=== PATIENT | male | born 1935 | race Hispanic/Latino ===

== ENCOUNTER 2020-09-20 09:16 | Inpatient (IN) | payer OTHER, MEDICAID ==
[~2020-09-20] VITALS: Ht 152.4 cm; Wt 57.2 kg
--- NOTE | 2020-09-20 10:29 | REP ---
INDICATION: AMS. COMPARISON: None. TECHNIQUE: SINGLE PORTABLE AP VIEW OF THE CHEST WAS PERFORMED. FINDINGS: THERE IS NO ACUTE INFILTRATE OR PULMONARY EDEMA. LUNGS ARE CLEAR. HEART IS NOT SIGNIFICANTLY ENLARGED. MEDIASTINAL SILHOUETTE IS UNREMARKABLE. THE VISUALIZED OSSEOUS STRUCTURES ARE INTACT. IMPRESSION: NO ACUTE PULMONARY DISEASE. <Electronically signed by Alexandr Willson > 09/20/20 1022
[2020-09-20 10:47] LABS: BASO % 0.5 % (0.0-1.0); EOS % 0.7 % (0.0-3.0); HEMATOCRIT 34.6 % (42.0-52.0); HEMOGLOBIN 11.1 g/dl (13.5-17.5); LYMPH # 1.2 10^3/uL (1.5-5.0); LYMPH % 22.2 % (24.0-44.0); MEAN CORPUSCULAR HEMOGLOBIN 31.2 pg (27.0-33.0); MEAN CORPUSCULAR HGB CONC 32.1 g/dl (32.0-36.5); MEAN CORPUSCULAR VOLUME 97.2 fl (80.0-96.0); MONO # 0.6 10^3/uL (0.0-0.8); MONO % 10.6 % (0.0-5.0); NEUTROPHILS # 3.7 10^3/uL (1.5-8.5); NEUTROPHILS % 65.6 % (36.0-66.0); PLATELET COUNT, AUTOMATED 189 10^3/uL (150-450); RED BLOOD COUNT 3.56 10^6/uL (4.30-6.10); WHITE BLOOD COUNT 5.6 10^3/uL (4.0-10.0)
[2020-09-20 11:24] LABS: ALBUMIN 3.7 GM/DL (3.2-5.2); ALT/SGPT 40 U/L (12-78); BILIRUBIN,TOTAL 0.3 MG/DL (0.2-1.0); BLOOD UREA NITROGEN 41 MG/DL (7-18); CALCIUM LEVEL 9.2 MG/DL (8.8-10.2); CARBON DIOXIDE LEVEL 26 MEQ/L (21-32); CHLORIDE LEVEL 108 MEQ/L (98-107); CREATININE FOR GFR 1.62 MG/DL (0.70-1.30); ETHYL ALCOHOL (ETHANOL) < 0.003 % (0.000-0.010); GLOMERULAR FILTRATION RATE 43.5 (>35); GLUCOSE, FASTING 101 MG/DL (70-100); POTASSIUM SERUM 5.2 MEQ/L (3.5-5.1); SODIUM LEVEL 139 MEQ/L (136-145); TOTAL PROTEIN 7.1 GM/DL (6.4-8.2)
[2020-09-20] MEDS ORDERED: LEVO125T41 PO (12:04)
[2020-09-20] MEDS ORDERED: NS 1,000 ML IV SCH (12:15)
--- OUTSIDE RECORDS SUMMARY | 2020-09-20 12:22 | CCD ---
Author Author [facility] Organization [facility] Address Unknown Phone Unavailable Support Name Relationship Address Phone RE Next Of Kin Unknown Unavailable VIDALESJUD Next Of Kin [address] [id number] Re-disclosure Warning The records that you are about to access may contain information from federally-assisted alcohol or drug abuse programs. If such information is present, then the following federally mandated warning applies: This information has been disclosed to you from records protected by federal confidentiality rules (42 CFR part 2). The federal rules prohibit you from making any further disclosure of this information unless further disclosure is expressly permitted by the written consent of the person to whom it pertains or as otherwise permitted by 42 CFR part 2. A general authorization for the release of medical or other information is NOT sufficient for this purpose. The Federal rules restrict any use of the information to criminally investigate or prosecute any alcohol or drug abuse patient.The records that you are about to access may contain highly sensitive health information, the redisclosure of which is protected by Article 27-F of the [facility] Public Health law. If you continue you may have access to information: Regarding HIV / AIDS; Provided by facilities licensed or operated by the [facility] Office of Mental Health; or Provided by the [facility] Office for People With Developmental Disabilities. If such information is present, then the following [facility] mandated warning applies: This information has been disclosed to you from confidential records which are protected by state law. State law prohibits you from making any further disclosure of this information without the specific written consent of the person to whom it pertains, or as otherwise permitted by law. Any unauthorized further disclosure in violation of state law may result in a fine or halfway sentence or both. A general authorization for the release of medical or other information is NOT sufficient authorization for further disc losure. Insurance Providers Payer name Policy type / Coverage type Policy ID Covered libertarian ID Covered libertarian's relationship to mann Policy Mann Plan Information [facility] [id number]
[2020-09-20 13:14] LABS: FREE T4 1.37 NG/DL (0.76-1.46)
[2020-09-20 13:22] LABS: TOTAL T3 82.9 NG/DL (60.0-181.0)
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
[2020-09-20 15:15] VITALS: BP 165/74
[2020-09-20 15:34] LABS: CALCIUM LEVEL 9.4 MG/DL (8.8-10.2); CREATININE FOR GFR 1.42 MG/DL (0.70-1.30); GLOMERULAR FILTRATION RATE 50.7 (>35); POTASSIUM SERUM 4.8 MEQ/L (3.5-5.1)
[2020-09-20 15:36] LABS: CHOLESTEROL RISK RATIO 3.125 (<5)
[2020-09-20 15:42] LABS: HEMOGLOBIN A1c 5.7 %
--- NOTE | 2020-09-20 16:29 | ECGEPIP ---
[facility] - ED Test Date: 2020-09-20 Pat Name: BRISA VIDALES Department: Room: - Gender: Male Surgical Tech: KIARA : [id number] Requested By: Sejal Gordon Order Number: [id number] Reading MD: Fred Hernández Measurements Intervals [place] Rate: 60 P: 49 NH: 157 QRS: 1 QRSD: 90 T: 10 QT: 412 QTc: 413 Interpretive Statements SINUS RHYTHM POOR R WAVE PROGRESSION NONSPECIFIC T WAVE ABNORMALITY(S) BASELINE ARTIFACT AFFECTS INTERPRETATION NO PRIORS FOR COMPARISON Electronically Signed on 09-20-2020 16:29:07 EST by Fred Hernández
[2020-09-20 16:36] LABS: HIV 1&2 SCREEN CENTAUR NEGATIVE (NEGATIVE); VITAMIN B12 LEVEL 603 PG/ML (247-911)
[2020-09-20] MEDS: QUEtiapine FUMARATE 25 MG TAB PO SCH (20:31)
[2020-09-20] MEDS: HEPARIN SOD (PORCINE) 5000UNITS/ML 1ML VIAL/SYRINGE SQ SCH (20:31)
[2020-09-20] MEDS ORDERED: traZODone 50 MG TAB PO SCH (21:00)
[2020-09-21] MEDS: LEVOTHYROXINE 100MCG TABLET (0.1MG) PO SCH (05:13)
[2020-09-21 06:00] VITALS: BP 156/77
[2020-09-21 06:25] LABS: HEMATOCRIT 35.7 % (42.0-52.0); HEMOGLOBIN 11.7 g/dl (13.5-17.5); MEAN CORPUSCULAR HEMOGLOBIN 32.2 pg (27.0-33.0); MEAN CORPUSCULAR HGB CONC 32.8 g/dl (32.0-36.5); MEAN CORPUSCULAR VOLUME 98.3 fl (80.0-96.0); PLATELET COUNT, AUTOMATED 189 10^3/uL (150-450); RED BLOOD COUNT 3.63 10^6/uL (4.30-6.10); WHITE BLOOD COUNT 5.3 10^3/uL (4.0-10.0)
[2020-09-21 06:53] LABS: ALBUMIN 3.4 GM/DL (3.2-5.2); BILIRUBIN,TOTAL 0.4 MG/DL (0.2-1.0); CALCIUM LEVEL 9.6 MG/DL (8.8-10.2); CREATININE FOR GFR 1.34 MG/DL (0.70-1.30); GLOMERULAR FILTRATION RATE 54.2 (>35); POTASSIUM SERUM 4.4 MEQ/L (3.5-5.1); TOTAL PROTEIN 7.1 GM/DL (6.4-8.2)
[2020-09-21] MEDS: QUEtiapine FUMARATE 25 MG TAB PO SCH ×2 (08:51→21:39)
[2020-09-21] MEDS: HEPARIN SOD (PORCINE) 5000UNITS/ML 1ML VIAL/SYRINGE SQ SCH ×2 (08:54→21:39)
[2020-09-21 14:00] VITALS: BP 123/66
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
[2020-09-21 21:10] VITALS: BP 140/84
[2020-09-21] MEDS: haloperidoL 1 MG TAB PO SCH (21:39)
[2020-09-22] MEDS: QUEtiapine FUMARATE 25 MG TAB PO SCH ×3 (01:22→22:10)
[2020-09-22] MEDS: haloperidoL 1 MG TAB PO SCH ×2 (01:22→22:10)
[2020-09-22 05:34] VITALS: BP 148/52
[2020-09-22 06:51] LABS: HEMATOCRIT 34.5 % (42.0-52.0); HEMOGLOBIN 11.3 g/dl (13.5-17.5); MEAN CORPUSCULAR HEMOGLOBIN 31.2 pg (27.0-33.0); MEAN CORPUSCULAR HGB CONC 32.8 g/dl (32.0-36.5); MEAN CORPUSCULAR VOLUME 95.3 fl (80.0-96.0); PLATELET COUNT, AUTOMATED 195 10^3/uL (150-450); RED BLOOD COUNT 3.62 10^6/uL (4.30-6.10); WHITE BLOOD COUNT 4.6 10^3/uL (4.0-10.0)
[2020-09-22 07:19] LABS: ALBUMIN 3.3 GM/DL (3.2-5.2); BILIRUBIN,TOTAL 0.4 MG/DL (0.2-1.0); CALCIUM LEVEL 9.1 MG/DL (8.8-10.2); CREATININE FOR GFR 1.48 MG/DL (0.70-1.30); GLOMERULAR FILTRATION RATE 48.3 (>35); POTASSIUM SERUM 5.4 MEQ/L (3.5-5.1); TOTAL PROTEIN 7.2 GM/DL (6.4-8.2)
[2020-09-22] MEDS: LEVOTHYROXINE 100MCG TABLET (0.1MG) PO SCH (09:10)
[2020-09-22] MEDS: HEPARIN SOD (PORCINE) 5000UNITS/ML 1ML VIAL/SYRINGE SQ SCH ×2 (09:10→22:11)
--- NOTE | 2020-09-22 12:06 | REPVR ---
PROCEDURE INFORMATION: Exam: MR Head Without Contrast Exam date and time: 09/22/2020 6:00 AM Age: 85 years old Clinical indication: Altered mental status/memory loss; Age related cognitive decline; Additional info: Confusion, worsening TECHNIQUE: Imaging protocol: MR of the head without contrast. COMPARISON: No relevant prior studies available. FINDINGS: Brain: Moderate generalized cerebral volume loss. There are extensive scattered and confluent areas of white matter T2 hyperintensity, nonspecific but commonly secondary to chronic small vessel ischemic change. No acute ischemic infarction. No acute intracranial hemorrhage. Cerebral ventricles: No ventriculomegaly. Bones/joints: Unremarkable. Paranasal sinuses: Normal as visualized. Mastoid air cells: No mastoid effusion. Orbital cavity: Bilateral lens replacements. Soft tissues: Unremarkable. IMPRESSION: No acute intracranial abnormality. Electronically signed by: Lambert Simms On 09/22/2020 12:06:19 PM
[2020-09-22] MEDS: NS 1,000 ML IV SCH ×2 (13:07→22:58)
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
[2020-09-22 22:00] VITALS: BP 138/78
[2020-09-23 06:55] LABS: HEMATOCRIT 33.3 % (42.0-52.0); HEMOGLOBIN 10.8 g/dl (13.5-17.5); MEAN CORPUSCULAR HEMOGLOBIN 31.3 pg (27.0-33.0); MEAN CORPUSCULAR HGB CONC 32.4 g/dl (32.0-36.5); MEAN CORPUSCULAR VOLUME 96.5 fl (80.0-96.0); PLATELET COUNT, AUTOMATED 189 10^3/uL (150-450); RED BLOOD COUNT 3.45 10^6/uL (4.30-6.10); WHITE BLOOD COUNT 4.8 10^3/uL (4.0-10.0)
[2020-09-23] MEDS: LEVOTHYROXINE 100MCG TABLET (0.1MG) PO SCH (06:55)
[2020-09-23 07:01] VITALS: BP 133/81
[2020-09-23 07:12] LABS: ALBUMIN 3.1 GM/DL (3.2-5.2); BILIRUBIN,TOTAL 0.3 MG/DL (0.2-1.0); CREATININE FOR GFR 1.4 MG/DL (0.70-1.30); GLOMERULAR FILTRATION RATE 51.5 (>35); POTASSIUM SERUM 4.4 MEQ/L (3.5-5.1); TOTAL PROTEIN 6.9 GM/DL (6.4-8.2)
[2020-09-23] MEDS: QUEtiapine FUMARATE 25 MG TAB PO SCH ×3 (10:01→20:56)
[2020-09-23] MEDS: HEPARIN SOD (PORCINE) 5000UNITS/ML 1ML VIAL/SYRINGE SQ SCH ×2 (10:02→20:57)
[2020-09-23] MEDS: NS 1,000 ML IV SCH ×2 (10:03→20:57)
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
[2020-09-23] MEDS: haloperidoL 1 MG TAB PO SCH (20:56)
[2020-09-24 06:10] VITALS: BP 160/66
[2020-09-24] MEDS: LEVOTHYROXINE 100MCG TABLET (0.1MG) PO SCH (06:10)
[2020-09-24 06:37] LABS: HEMATOCRIT 33.2 % (42.0-52.0); HEMOGLOBIN 10.7 g/dl (13.5-17.5); MEAN CORPUSCULAR HEMOGLOBIN 31.9 pg (27.0-33.0); MEAN CORPUSCULAR HGB CONC 32.2 g/dl (32.0-36.5); MEAN CORPUSCULAR VOLUME 99.1 fl (80.0-96.0); PLATELET COUNT, AUTOMATED 177 10^3/uL (150-450); RED BLOOD COUNT 3.35 10^6/uL (4.30-6.10); WHITE BLOOD COUNT 4.5 10^3/uL (4.0-10.0)
[2020-09-24] MEDS: NS 1,000 ML IV SCH (06:43)
[2020-09-24 07:17] LABS: ALBUMIN 3.1 GM/DL (3.2-5.2); ALT/SGPT 31 U/L (12-78); BILIRUBIN,TOTAL 0.4 MG/DL (0.2-1.0); BLOOD UREA NITROGEN 25 MG/DL (7-18); CALCIUM LEVEL 8.8 MG/DL (8.8-10.2); CARBON DIOXIDE LEVEL 26 MEQ/L (21-32); CHLORIDE LEVEL 112 MEQ/L (98-107); CREATININE FOR GFR 1.19 MG/DL (0.70-1.30); GLOMERULAR FILTRATION RATE > 60.0 (>35); GLUCOSE, FASTING 82 MG/DL (70-100); POTASSIUM SERUM 4.7 MEQ/L (3.5-5.1); SODIUM LEVEL 143 MEQ/L (136-145); TOTAL PROTEIN 6.2 GM/DL (6.4-8.2)
[2020-09-24] MEDS: QUEtiapine FUMARATE 25 MG TAB PO SCH ×2 (08:49→22:00)
[2020-09-24] MEDS: HEPARIN SOD (PORCINE) 5000UNITS/ML 1ML VIAL/SYRINGE SQ SCH ×2 (08:49→22:00)
--- NOTE | 2020-09-24 11:00 | WAPSY-INT ---
[facility] PSYCH INITIAL ASSESSMENT DATE OF ADMISSION: 09/20/2020 ADDENDUM: Patient indicated that he had the virus. I am not sure how accurate that is, but that needs to be noted. The clinicians will need to explore that, possibly via the patient's daughter.
[2020-09-24] MEDS: haloperidoL 0.5 MG TAB PO PRN ×2 (16:37→23:10)
[2020-09-24] MEDS: haloperidoL 1 MG TAB PO SCH (22:00)
[2020-09-25] MEDS: LEVOTHYROXINE 100MCG TABLET (0.1MG) PO SCH (06:35)
[2020-09-25] MEDS: HEPARIN SOD (PORCINE) 5000UNITS/ML 1ML VIAL/SYRINGE SQ SCH ×3 (09:00→21:00)
[2020-09-25] MEDS: QUEtiapine FUMARATE 25 MG TAB PO SCH ×2 (11:46→20:44)
[2020-09-25] MEDS: haloperidoL 1 MG TAB PO SCH (20:44)
[2020-09-25] MEDS ORDERED: OLANZapine INTRAMUSCULAR 10MG VIAL IM ONE ×2 (23:15→23:45)
--- NOTE | 2020-09-25 23:47 | IPNPDOC ---
Text Note Date of Service The patient was seen on 09/25/20. NOTE TIME OF SERVICE 1115PM Code 25 was called bc was agitated and trying to leave his room. At the time of my assessment with the assistance of a wall cleaner the topic of his conversation was not congruent with the questions I was asking him. He was not able to name the building that we were in or the season.Per chart review he had received haloperidol and quetiapine a few hours ago; he has not recently had leukocytosis and his most recent vitals were wnl.. RN Tire Retreader Elizabeth Blevins called his grand-daughter to see if she could come and help keep the patient oriented but she was unable to do so. #Delirium vs Plan: olanzapine 5mg IM x asked his RN to check his serum glucose and vitals once he perales calmed down / will also order a CBC, CMP and UA VS,Fishbone, I+O VS, Fishbone, I+O Vital Signs Date Time Temp Pulse Resp B/P (MAP) Pulse Ox O2 Delivery O2 Flow Rate FiO2 09/24/20 06:10 97.4 72 18 160/66 (97) 99 Room Air I&O- Last 24 Hours up to 6 AM 09/25/20 06:00 Intake Total 2910 ml Output Total 600 ml Balance 2310 ml DANNIE RAY MD Sep 25, 2020 23:47
[2020-09-25 23:50] VITALS: BP 118/69
[2020-09-26 01:07] LABS: BASO % 0.6 % (0.0-1.0); EOS # 0.1 10^3/uL (0.0-0.5); EOS % 1.5 % (0.0-3.0); HEMATOCRIT 36.1 % (42.0-52.0); HEMOGLOBIN 11.9 g/dl (13.5-17.5); LYMPH # 1.1 10^3/uL (1.5-5.0); LYMPH % 30.5 % (24.0-44.0); MONO # 0.5 10^3/uL (0.0-0.8); MONO % 14.2 % (0.0-5.0); NEUTROPHILS # 1.8 10^3/uL (1.5-8.5); NEUTROPHILS % 52.9 % (36.0-66.0); PLATELET COUNT, AUTOMATED 187 10^3/uL (150-450); RED BLOOD COUNT 3.72 10^6/uL (4.30-6.10); WHITE BLOOD COUNT 3.4 10^3/uL (4.0-10.0)
[2020-09-26 01:13] LABS: ALBUMIN 3.4 GM/DL (3.2-5.2); BILIRUBIN,TOTAL 0.3 MG/DL (0.2-1.0); CALCIUM LEVEL 9.5 MG/DL (8.8-10.2); CREATININE FOR GFR 1.41 MG/DL (0.70-1.30); GLOMERULAR FILTRATION RATE 51.1 (>35); POTASSIUM SERUM 4.7 MEQ/L (3.5-5.1); TOTAL PROTEIN 7.5 GM/DL (6.4-8.2)
[2020-09-26 02:04] LABS: C REACTIVE PROTEIN QUANTITATIV 0.33 MG/DL (0.00-0.30)
[2020-09-26 06:00] VITALS: BP 172/91
[2020-09-26] MEDS: LEVOTHYROXINE 100MCG TABLET (0.1MG) PO SCH (06:16)
[2020-09-26] MEDS: QUEtiapine FUMARATE 25 MG TAB PO SCH ×2 (07:24→20:27)
[2020-09-26] MEDS: HEPARIN SOD (PORCINE) 5000UNITS/ML 1ML VIAL/SYRINGE SQ SCH ×2 (07:25→20:27)
[2020-09-26 07:29] LABS: RSV AMPLIFICATION NEGATIVE (NEGATIVE)
[2020-09-26] MEDS: haloperidoL 0.5 MG TAB PO PRN (12:49)
[2020-09-26] MEDS: haloperidoL 1 MG TAB PO SCH (20:27)
[2020-09-27 04:00] VITALS: BP 153/74
[2020-09-27] MEDS: LEVOTHYROXINE 100MCG TABLET (0.1MG) PO SCH (05:06)
[2020-09-27] MEDS: HEPARIN SOD (PORCINE) 5000UNITS/ML 1ML VIAL/SYRINGE SQ SCH ×2 (09:00→21:15)
[2020-09-27] MEDS: QUEtiapine FUMARATE 25 MG TAB PO SCH ×2 (09:20→21:12)
--- NOTE | 2020-09-27 09:38 | IPNPDOC ---
Text Note Date of Service The patient was seen on 09/27/20. NOTE SUBJECTIVE: Patient seen at bedside. Chart reviewed. Discussed with psychiatry. OBJECTIVE: General: NAD Patient not co-operative for remainder of exam. A/P: 85-year-old male with PMHx of hypothyroidism, hypertension, questionable dementia admitted for altered mental status likely 2/2 to dementia (Lewey body versus Parkinson's?) with behaviors. #Dementia (Lewy Body dementia/Parkinson's dementia?) likely with behaviors (aggression/violence) -Also per psych, likely neurocognitive disorder, likely due to ischemia -MRI - no acute pathology -Syphilis: nonreactive -HIV: neg -TSH low but T3 and T4 normal -UA: neg -case discussed previously with Dr. Denson, neurology -Pysch assess, see their note in chart. -discussed again today with psych - increased qhs dosing of haldol, continue PRN dosing, continue seroquel #Acute kidney injury - resolved -grossly at baseline - avoid nephrotoxic medications #Anemia, macrocytic -Vit B12, folate wnl -No s/s of bleeding #Hypothyroidism -TSH low, T3 and T4 wnl - previously home synthroid decreased by 25 mcg -C/w levothyroxine 100 mcg PO daily for now. #HTN. -Stable -not on home meds #DVT px -Heparin sc Resolved issues: Hyperkalemia likely 2/2 to acute kidney injury DISPOSITION: Pending placement VS,Fishbone, I+O VS, Fishbone, I+O Vital Signs Date Time Temp Pulse Resp B/P (MAP) Pulse Ox O2 Delivery O2 Flow Rate FiO2 09/27/20 04:00 96.8 77 18 153/74 (100) 97 Room Air I&O- Last 24 Hours up to 6 AM 09/27/20 06:00 Intake Total 590 ml Output Total 0 ml Balance 590 ml PROSPER RHODES MD Sep 27, 2020 09:38
[2020-09-27] MEDS: haloperidoL 1 MG TAB PO SCH (21:12)
[2020-09-28] MEDS: LEVOTHYROXINE 100MCG TABLET (0.1MG) PO SCH (05:00)
[2020-09-28 05:02] VITALS: BP 150/71
[2020-09-28] MEDS: HEPARIN SOD (PORCINE) 5000UNITS/ML 1ML VIAL/SYRINGE SQ SCH ×2 (10:06→20:33)
[2020-09-28] MEDS: QUEtiapine FUMARATE 25 MG TAB PO SCH ×2 (10:06→20:33)
[2020-09-28] MEDS: haloperidoL 1 MG TAB PO SCH (20:33)
[2020-09-28] MEDS: haloperidoL 0.5 MG TAB PO PRN (23:41)
[2020-09-29] MEDS: LEVOTHYROXINE 100MCG TABLET (0.1MG) PO SCH (06:00)
[2020-09-29] MEDS: HEPARIN SOD (PORCINE) 5000UNITS/ML 1ML VIAL/SYRINGE SQ SCH ×2 (09:00→21:36)
[2020-09-29] MEDS: QUEtiapine FUMARATE 25 MG TAB PO SCH ×2 (14:16→21:36)
[2020-09-29] MEDS: haloperidoL 1 MG TAB PO SCH (21:36)
[2020-09-30 06:00] VITALS: BP 151/70
[2020-09-30] MEDS: LEVOTHYROXINE 100MCG TABLET (0.1MG) PO SCH (06:07)
[2020-09-30] MEDS: HEPARIN SOD (PORCINE) 5000UNITS/ML 1ML VIAL/SYRINGE SQ SCH ×2 (08:42→21:36)
[2020-09-30] MEDS: QUEtiapine FUMARATE 25 MG TAB PO SCH ×2 (08:42→21:35)
[2020-09-30] MEDS: haloperidoL 1 MG TAB PO SCH (21:34)
[2020-10-01 06:00] VITALS: BP 144/72
[2020-10-01] MEDS: LEVOTHYROXINE 100MCG TABLET (0.1MG) PO SCH (06:00)
[2020-10-01] MEDS: HEPARIN SOD (PORCINE) 5000UNITS/ML 1ML VIAL/SYRINGE SQ SCH ×2 (09:12→21:00)
[2020-10-01] MEDS: QUEtiapine FUMARATE 25 MG TAB PO SCH ×2 (09:12→21:22)
[2020-10-01] MEDS: haloperidoL 1 MG TAB PO SCH (21:22)
[2020-10-02 06:00] VITALS: BP 152/71
[2020-10-02] MEDS: LEVOTHYROXINE 100MCG TABLET (0.1MG) PO SCH (08:01)
[2020-10-02] MEDS: QUEtiapine FUMARATE 25 MG TAB PO SCH ×2 (08:01→21:10)
[2020-10-02] MEDS: HEPARIN SOD (PORCINE) 5000UNITS/ML 1ML VIAL/SYRINGE SQ SCH ×2 (08:02→21:10)
[2020-10-02 09:26] LABS: HEMATOCRIT 37.6 % (42.0-52.0); HEMOGLOBIN 12.1 g/dl (13.5-17.5); MEAN CORPUSCULAR HGB CONC 32.2 g/dl (32.0-36.5); MEAN CORPUSCULAR VOLUME 96.4 fl (80.0-96.0); PLATELET COUNT, AUTOMATED 227 10^3/uL (150-450); WHITE BLOOD COUNT 3.5 10^3/uL (4.0-10.0)
[2020-10-02 10:01] LABS: ALBUMIN 3.5 GM/DL (3.2-5.2); BILIRUBIN,TOTAL 0.2 MG/DL (0.2-1.0); CALCIUM LEVEL 9.6 MG/DL (8.8-10.2); CREATININE FOR GFR 1.38 MG/DL (0.70-1.30); GLOMERULAR FILTRATION RATE 52.4 (>35); POTASSIUM SERUM 4.9 MEQ/L (3.5-5.1)
--- NOTE | 2020-10-02 13:23 | IPNPDOC ---
Date Seen The patient was seen on 10/02/20. Progress Note SUBJECTIVE: Structural Engineering Drafting Officer service used for evaluation. No acute events overnight. Denies chest pain, n/v/d. OBJECTIVE: PHYSICAL EXAMINATION: VS: Please see below CONSTITUTIONAL: No acute distress, resting comfortably, Awake and alert oriented to self, place but not time EYES: PERRLA, EOM intact HENT, MOUTH: Normocephalic, atraumatic, moist mucous membranes NECK: SUPPLE, no JVD, no lymphadenopathy, no carotid bruit CV: Regular rate and rhythm, S1S2 normal, no murmurs/rubs/gallops RESPIRATORY: Clear to auscultation bilaterally, no rales/rhonchi/wheezes GI: BS positive in 4 quadrants, soft, nontender, nondistended, no rebound or guarding, no organomegaly : Deferred MUSCULOSKELETAL: Normal ROM. No cyanosis, clubbing, swelling, joint deformity, extremity edema INTEGUMENTARY: Intact, no rashes, no lesions, no erythema NEUROLOGIC: Cranial Nerves II-XII are intact, no focal deficits PSYCHIATRIC: cooperative, mood and affect appropriate . LABORATORY: Please see below A/P: 85-year-old male with PMHx of hypothyroidism, hypertension, questionable dementia admitted for altered mental status likely 2/2 to dementia (Lewey body versus Parkinson's?) with behaviors. #Dementia (Lewy Body dementia/Parkinson's dementia?) likely with behaviors (aggression/violence) -Also per psych, likely neurocognitive disorder, likely due to ischemia -MRI - no acute pathology -Syphilis: nonreactive -HIV: neg -TSH low but T3 and T4 normal -UA: neg -case discussed previously with Dr. Denson, neurology -[facility] assess, see their note in chart. -C/w qhs dosing of haldol, haldol PRN dosing, seroquel BID -Requiring placement, PFS/SW working on this #CKD Stage 2-3? -Unknown baseline but now believed patient likely has had increased Cr for some time -Cr 1.38 -Follow BMP regularly - avoid nephrotoxic medications #Anemia, macrocytic -Vit B12, folate wnl -No s/s of bleeding #Hypothyroidism -TSH low, T3 and T4 wnl - previously home synthroid decreased by 25 mcg -C/w levothyroxine 100 mcg PO daily for now. #HTN. -Stable -not on home meds #DVT px -Heparin sc DISPOSITION: Pending placement. PFS/SW working on avenues necessary to proceed forward. VS, I&O, 24H, Fishbone Vital Signs/I&O Vital Signs Date Time Temp Pulse Resp B/P (MAP) Pulse Ox O2 Delivery O2 Flow Rate FiO2 10/02/20 06:00 97.1 69 16 152/71 (98) 98 Room Air I&O- Last 24 Hours up to 6 AM 10/02/20 06:00 Intake Total 1320 ml Balance 1320 ml Laboratory Data 24H LABS Laboratory Tests 2 10/02/20 09:17: Nucleated Red Blood Cells % (auto) 0.0, Anion Gap 6L, Glomerular Filtration Rate 52.4, Calcium Level 9.6, Total Bilirubin 0.2, Aspartate Amino Transf (AST/SGOT) 29, Alanine Aminotransferase (ALT/SGPT) 56, Alkaline Phosphatase 73, Total Protein 7.0, Albumin 3.5, Albumin/Globulin Ratio 1.0 CBC/BMP Laboratory Tests 10/02/20 09:17 Current Medications Current Medications Medications (Trade) Dose Ordered Sig/Cleopatra Route PRN Reason Start Time Stop Time Status Last Admin Dose Admin Haloperidol (Haldol) 0.5 mg TIDP PRN PO ANXIETY/AGITATION 09/21/20 19:30 09/28/20 23:41 Haloperidol (Haldol) 1 mg QHS PO 09/21/20 21:00 09/27/20 09:32 DC 09/26/20 20:27 Haloperidol (Haldol) 1.5 mg QHS PO 09/27/20 21:00 10/01/20 21:22 Heparin Sodium (Porcine) (Heparin) 5,000 units Q12H SQ 09/20/20 21:00 10/02/20 08:02 Home Med (Med Rec Complete!) ASDIRECTED XX 09/20/20 12:15 09/20/20 12:07 DC Levothyroxine Sodium (Synthroid) 100 mcg DAILY@06 PO 09/21/20 06:00 10/02/20 08:01 Quetiapine Fumarate (SEROquel) 25 mg BID PO 09/20/20 21:00 10/02/20 08:01 Sodium Chloride 1,000 ml @ 100 mls/hr Q10H IV 09/20/20 12:15 09/20/20 20:53 DC 09/20/20 14:47 Sodium Chloride 1,000 ml @ 100 mls/hr Q10H IV 09/22/20 12:15 09/24/20 07:45 DC 09/24/20 06:43 Trazodone HCl (Desyrel) 50 mg QHS PO 09/20/20 21:00 09/20/20 14:33 DC Allergies Coded Allergies: No Known Drug Allergies (Verified Allergy, Unknown, 09/20/20) Beatriz Segura MD Oct 02, 2020 13:23
[2020-10-02] MEDS: haloperidoL 1 MG TAB PO SCH (21:10)
[2020-10-03 05:49] VITALS: BP 167/75
[2020-10-03] MEDS: LEVOTHYROXINE 100MCG TABLET (0.1MG) PO SCH (06:47)
[2020-10-03] MEDS: HEPARIN SOD (PORCINE) 5000UNITS/ML 1ML VIAL/SYRINGE SQ SCH ×2 (09:19→19:46)
[2020-10-03] MEDS: QUEtiapine FUMARATE 25 MG TAB PO SCH ×2 (09:19→19:45)
[2020-10-03] MEDS: haloperidoL 1 MG TAB PO SCH (19:45)
[2020-10-04] MEDS: LEVOTHYROXINE 100MCG TABLET (0.1MG) PO SCH (06:00)
[2020-10-04] MEDS: QUEtiapine FUMARATE 25 MG TAB PO SCH ×2 (08:14→19:32)
[2020-10-04] MEDS: HEPARIN SOD (PORCINE) 5000UNITS/ML 1ML VIAL/SYRINGE SQ SCH ×2 (08:14→19:32)
[2020-10-04] MEDS: haloperidoL 1 MG TAB PO SCH (19:33)
[2020-10-05 05:53] VITALS: BP 165/90
[2020-10-05] MEDS: LEVOTHYROXINE 100MCG TABLET (0.1MG) PO SCH (05:56)
[2020-10-05] MEDS: HEPARIN SOD (PORCINE) 5000UNITS/ML 1ML VIAL/SYRINGE SQ SCH ×2 (08:32→19:29)
[2020-10-05] MEDS: QUEtiapine FUMARATE 25 MG TAB PO SCH ×2 (08:32→19:29)
[2020-10-05] MEDS: haloperidoL 1 MG TAB PO SCH (19:29)
[2020-10-06] MEDS: LEVOTHYROXINE 100MCG TABLET (0.1MG) PO SCH (05:18)
[2020-10-06 06:02] VITALS: BP 140/65
[2020-10-06] MEDS: QUEtiapine FUMARATE 25 MG TAB PO SCH ×2 (09:05→19:28)
[2020-10-06] MEDS: HEPARIN SOD (PORCINE) 5000UNITS/ML 1ML VIAL/SYRINGE SQ SCH ×2 (09:05→19:28)
[2020-10-06] MEDS: haloperidoL 1 MG TAB PO SCH (19:28)
[2020-10-07 06:00] VITALS: BP 141/69
[2020-10-07] MEDS: LEVOTHYROXINE 100MCG TABLET (0.1MG) PO SCH (06:15)
[2020-10-07] MEDS: HEPARIN SOD (PORCINE) 5000UNITS/ML 1ML VIAL/SYRINGE SQ SCH ×2 (08:44→19:45)
[2020-10-07] MEDS: QUEtiapine FUMARATE 25 MG TAB PO SCH ×2 (08:44→19:44)
[2020-10-07] MEDS: DOCUSATE SODIUM 100MG CAPSULE PO SCH ×2 (09:00→19:44)
[2020-10-07] MEDS: haloperidoL 1 MG TAB PO SCH (19:44)
[2020-10-08] MEDS: LEVOTHYROXINE 100MCG TABLET (0.1MG) PO SCH (06:27)
[2020-10-08] MEDS: HEPARIN SOD (PORCINE) 5000UNITS/ML 1ML VIAL/SYRINGE SQ SCH ×2 (09:47→20:01)
[2020-10-08] MEDS: DOCUSATE SODIUM 100MG CAPSULE PO SCH ×2 (09:47→20:01)
[2020-10-08] MEDS: QUEtiapine FUMARATE 25 MG TAB PO SCH ×2 (09:47→20:02)
[2020-10-08] MEDS: haloperidoL 1 MG TAB PO SCH (20:01)
[2020-10-09 06:00] VITALS: BP 148/71
[2020-10-09] MEDS: LEVOTHYROXINE 100MCG TABLET (0.1MG) PO SCH (06:04)
[2020-10-09] MEDS: QUEtiapine FUMARATE 25 MG TAB PO SCH ×2 (09:35→20:46)
[2020-10-09] MEDS: HEPARIN SOD (PORCINE) 5000UNITS/ML 1ML VIAL/SYRINGE SQ SCH ×2 (09:35→20:47)
[2020-10-09] MEDS: DOCUSATE SODIUM 100MG CAPSULE PO SCH ×2 (09:35→20:47)
[2020-10-09] MEDS: haloperidoL 1 MG TAB PO SCH (20:47)
[2020-10-10 06:00] VITALS: BP 145/69
[2020-10-10] MEDS: LEVOTHYROXINE 100MCG TABLET (0.1MG) PO SCH (06:06)
[2020-10-10] MEDS: DOCUSATE SODIUM 100MG CAPSULE PO SCH ×2 (08:34→20:33)
[2020-10-10] MEDS: QUEtiapine FUMARATE 25 MG TAB PO SCH ×2 (08:34→20:33)
[2020-10-10] MEDS: HEPARIN SOD (PORCINE) 5000UNITS/ML 1ML VIAL/SYRINGE SQ SCH ×2 (08:34→20:33)
[2020-10-10] MEDS: haloperidoL 1 MG TAB PO SCH (20:33)
[2020-10-11 06:00] VITALS: BP 113/60
[2020-10-11] MEDS: LEVOTHYROXINE 100MCG TABLET (0.1MG) PO SCH (06:08)
[2020-10-11] MEDS: HEPARIN SOD (PORCINE) 5000UNITS/ML 1ML VIAL/SYRINGE SQ SCH ×2 (08:24→21:04)
[2020-10-11] MEDS: QUEtiapine FUMARATE 25 MG TAB PO SCH ×2 (08:24→21:03)
[2020-10-11] MEDS: DOCUSATE SODIUM 100MG CAPSULE PO SCH ×2 (08:24→21:03)
[2020-10-11] MEDS: haloperidoL 1 MG TAB PO SCH (21:03)
[2020-10-12 06:00] VITALS: BP 128/74
[2020-10-12] MEDS: LEVOTHYROXINE 100MCG TABLET (0.1MG) PO SCH (06:09)
[2020-10-12] MEDS: HEPARIN SOD (PORCINE) 5000UNITS/ML 1ML VIAL/SYRINGE SQ SCH ×2 (09:06→20:11)
[2020-10-12] MEDS: DOCUSATE SODIUM 100MG CAPSULE PO SCH ×2 (09:06→20:11)
[2020-10-12] MEDS: QUEtiapine FUMARATE 25 MG TAB PO SCH ×2 (09:06→20:11)
[2020-10-12] MEDS: haloperidoL 1 MG TAB PO SCH (20:11)
[2020-10-13] MEDS: LEVOTHYROXINE 100MCG TABLET (0.1MG) PO SCH (06:14)
[2020-10-13 06:15] VITALS: BP 129/74
[2020-10-13] MEDS: DOCUSATE SODIUM 100MG CAPSULE PO SCH ×2 (09:35→21:27)
[2020-10-13] MEDS: HEPARIN SOD (PORCINE) 5000UNITS/ML 1ML VIAL/SYRINGE SQ SCH ×2 (09:35→21:28)
[2020-10-13] MEDS: QUEtiapine FUMARATE 25 MG TAB PO SCH ×2 (09:35→21:27)
[2020-10-13] MEDS: haloperidoL 1 MG TAB PO SCH (21:28)
[2020-10-14] MEDS: LEVOTHYROXINE 100MCG TABLET (0.1MG) PO SCH (05:17)
[2020-10-14 05:52] VITALS: BP 130/73
[2020-10-14] MEDS: DOCUSATE SODIUM 100MG CAPSULE PO SCH ×2 (09:19→21:08)
[2020-10-14] MEDS: QUEtiapine FUMARATE 25 MG TAB PO SCH ×2 (09:19→21:08)
[2020-10-14] MEDS: HEPARIN SOD (PORCINE) 5000UNITS/ML 1ML VIAL/SYRINGE SQ SCH ×2 (09:19→21:08)
--- NOTE | 2020-10-14 12:11 | IPNPDOC ---
Text Note Date of Service The patient was seen on 10/14/20. NOTE SUBJECTIVE: No acute events overnight. Denies any medical complaints. OBJECTIVE: VS: Please see below CONSTITUTIONAL: No acute distress, resting comfortably, Awake and alert oriented to self, place but not time EYES: PERRLA, EOM intact HENT, MOUTH: Normocephalic, atraumatic, moist mucous membranes NECK: SUPPLE, no JVD, no lymphadenopathy, no carotid bruit CV: Regular rate and rhythm, S1S2 normal, no murmurs/rubs/gallops RESPIRATORY: Clear to auscultation bilaterally, no rales/rhonchi/wheezes GI: BS positive in 4 quadrants, soft, nontender, nondistended, no rebound or guarding, no organomegaly : Deferred MUSCULOSKELETAL: Normal ROM. No cyanosis, clubbing, swelling, joint deformity, extremity edema INTEGUMENTARY: Intact, no rashes, no lesions, no erythema NEUROLOGIC: Cranial Nerves II-XII are intact, no focal deficits PSYCHIATRIC: cooperative, mood and affect appropriate . LABORATORY: Please see below A/P: 85-year-old male with PMHx of hypothyroidism, hypertension, questionable dementia admitted for altered mental status likely 2/2 to dementia (Lewey body versus Parkinson's?) with behaviors. #Dementia (Lewy Body dementia/Parkinson's dementia?) likely with behaviors (aggression/violence) -Also per psych, likely neurocognitive disorder, likely due to ischemia -MRI - no acute pathology -Syphilis: nonreactive -HIV: neg -TSH low but T3 and T4 normal -UA: neg -case discussed previously with Dr. Denson, neurology -Pysch assess, see their note in chart. -C/w qhs dosing of haldol, haldol PRN dosing, seroquel BID -Requiring placement, PFS/SW working on this #CKD Stage 2-3? -Unknown baseline but now believed patient likely has had increased Cr for some time -Cr 1.38 -Follow BMP regularly - avoid nephrotoxic medications #Anemia, macrocytic -Vit B12, folate wnl -No s/s of bleeding #Hypothyroidism -TSH low, T3 and T4 wnl - previously home synthroid decreased by 25 mcg -C/w levothyroxine 100 mcg PO daily for now. #HTN. -Stable -not on home meds #DVT px -Heparin sc DISPOSITION: Pending placement. PFS/SW working on avenues necessary to proceed forward. Discontinued PRN Haldol. Routine labs pending. VS,Fishbone, I+O VS, Fishbone, I+O Vital Signs Date Time Temp Pulse Resp B/P (MAP) Pulse Ox O2 Delivery O2 Flow Rate FiO2 10/14/20 05:52 96.0 68 20 130/73 (92) 98 Room Air I&O- Last 24 Hours up to 6 AM 10/14/20 06:00 Intake Total 1920 ml Output Total 0 ml Balance 1920 ml PROSPER RHDOES MD Oct 14, 2020 12:11
[2020-10-14] MEDS: haloperidoL 1 MG TAB PO SCH (21:08)
[2020-10-15] MEDS: LEVOTHYROXINE 100MCG TABLET (0.1MG) PO SCH (05:17)
[2020-10-15 06:00] VITALS: BP 139/73
[2020-10-15 08:12] LABS: HEMATOCRIT 35.3 % (42.0-52.0); HEMOGLOBIN 11.4 g/dl (13.5-17.5); MEAN CORPUSCULAR HEMOGLOBIN 31.6 pg (27.0-33.0); MEAN CORPUSCULAR HGB CONC 32.3 g/dl (32.0-36.5); MEAN CORPUSCULAR VOLUME 97.8 fl (80.0-96.0); PLATELET COUNT, AUTOMATED 217 10^3/uL (150-450); RED BLOOD COUNT 3.61 10^6/uL (4.30-6.10)
[2020-10-15] MEDS: DOCUSATE SODIUM 100MG CAPSULE PO SCH ×2 (08:23→20:56)
[2020-10-15] MEDS: QUEtiapine FUMARATE 25 MG TAB PO SCH ×2 (08:23→20:56)
[2020-10-15] MEDS: HEPARIN SOD (PORCINE) 5000UNITS/ML 1ML VIAL/SYRINGE SQ SCH ×2 (08:24→20:56)
[2020-10-15 08:42] LABS: CALCIUM LEVEL 9.8 MG/DL (8.8-10.2); CREATININE FOR GFR 1.28 MG/DL (0.70-1.30); GLOMERULAR FILTRATION RATE 57.1 (>35)
[2020-10-15] MEDS: haloperidoL 1 MG TAB PO SCH (20:56)
[2020-10-16] MEDS: LEVOTHYROXINE 100MCG TABLET (0.1MG) PO SCH (05:43)
[2020-10-16 06:00] VITALS: BP 134/76
[2020-10-16] MEDS: DOCUSATE SODIUM 100MG CAPSULE PO SCH ×2 (08:18→21:47)
[2020-10-16] MEDS: QUEtiapine FUMARATE 25 MG TAB PO SCH ×2 (08:18→21:47)
[2020-10-16] MEDS: HEPARIN SOD (PORCINE) 5000UNITS/ML 1ML VIAL/SYRINGE SQ SCH ×2 (08:21→21:47)
[2020-10-16] MEDS: haloperidoL 1 MG TAB PO SCH (21:47)
[2020-10-17] MEDS: LEVOTHYROXINE 100MCG TABLET (0.1MG) PO SCH ×2 (05:52→05:53)
[2020-10-17 06:00] VITALS: BP 139/74
[2020-10-17] MEDS: QUEtiapine FUMARATE 25 MG TAB PO SCH ×2 (09:03→20:12)
[2020-10-17] MEDS: HEPARIN SOD (PORCINE) 5000UNITS/ML 1ML VIAL/SYRINGE SQ SCH ×2 (09:03→20:12)
[2020-10-17] MEDS: DOCUSATE SODIUM 100MG CAPSULE PO SCH ×2 (09:03→20:12)
[2020-10-17] MEDS: haloperidoL 1 MG TAB PO SCH (20:12)
[2020-10-18] MEDS: LEVOTHYROXINE 100MCG TABLET (0.1MG) PO SCH (04:53)
[2020-10-18 06:00] VITALS: BP 174/84
[2020-10-18] MEDS: DOCUSATE SODIUM 100MG CAPSULE PO SCH ×2 (09:37→20:28)
[2020-10-18] MEDS: HEPARIN SOD (PORCINE) 5000UNITS/ML 1ML VIAL/SYRINGE SQ SCH ×2 (09:37→20:28)
[2020-10-18] MEDS: QUEtiapine FUMARATE 25 MG TAB PO SCH ×2 (09:37→20:28)
[2020-10-18] MEDS: haloperidoL 1 MG TAB PO SCH (20:26)
[2020-10-19 05:51] VITALS: BP 151/82
[2020-10-19] MEDS: LEVOTHYROXINE 100MCG TABLET (0.1MG) PO SCH (05:51)
[2020-10-19] MEDS: DOCUSATE SODIUM 100MG CAPSULE PO SCH ×2 (09:42→22:45)
[2020-10-19] MEDS: QUEtiapine FUMARATE 25 MG TAB PO SCH ×2 (09:42→22:45)
[2020-10-19] MEDS: HEPARIN SOD (PORCINE) 5000UNITS/ML 1ML VIAL/SYRINGE SQ SCH ×2 (09:43→21:00)
[2020-10-19 14:00] VITALS: BP 151/78
[2020-10-19] MEDS: haloperidoL 1 MG TAB PO SCH (22:45)
[2020-10-20] MEDS: LEVOTHYROXINE 100MCG TABLET (0.1MG) PO SCH (06:00)
[2020-10-20] MEDS: DOCUSATE SODIUM 100MG CAPSULE PO SCH ×2 (09:16→20:50)
[2020-10-20] MEDS: HEPARIN SOD (PORCINE) 5000UNITS/ML 1ML VIAL/SYRINGE SQ SCH ×2 (09:16→20:49)
[2020-10-20] MEDS: QUEtiapine FUMARATE 25 MG TAB PO SCH ×2 (09:16→20:50)
--- NOTE | 2020-10-20 11:54 | IPNPDOC ---
Text Note Date of Service The patient was seen on 10/20/20. NOTE SUBJECTIVE: No issues this week, continues to have a sitter . But no aggressive behavior this week. PHYSICAL EXAMINATION: VS: As below CONSTITUTIONAL: No acute distress, resting comfortably, Awake and alert oriented to self, place but not time EYES: PERRLA, EOM intact HEENT, MOUTH: Normocephalic, atraumatic, moist mucous membranes NECK: SUPPLE, no JVD, no lymphadenopathy, no carotid bruit CV: Regular rate and rhythm, S1S2 normal, no murmurs/rubs/gallops RESPIRATORY: Clear to auscultation bilaterally, no rales/rhonchi/wheezes GI: BS positive in 4 quadrants, soft, nontender, nondistended, no rebound or guarding, no organomegaly MUSCULOSKELETAL: Normal ROM. No cyanosis, clubbing, swelling, joint deformity, extremity edema INTEGUMENTARY: Intact, no rashes, no lesions, no erythema NEUROLOGIC: Cranial Nerves II-XII are intact, no focal deficits PSYCHIATRIC: cooperative, mood and affect appropriate . LABORATORY: Please see below A/P: 85-year-old male with PMHx of hypothyroidism, hypertension, admitted for altered mental status with behavioral abnormality (aggression/violence) Dementia (Lewy Body dementia/Parkinson's dementia?) Also per psych, likely neurocognitive disorder, likely due to ischemia MRI - no acute pathology Syphilis: nonreactive, HIV: neg ,TSH low but T3 and T4 normal Haldol at bed time and Seroquel BID Behaviors controlled with current medication regimen. 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 started on amlodipine. DVT px Heparin sc DISPOSITION: Pending placement. PFS/SW working on avenues necessary to proceed forward. VS,Fishbone, I+O VS, Fishbone, I+O Vital Signs Date Time Temp Pulse Resp B/P (MAP) Pulse Ox O2 Delivery O2 Flow Rate FiO2 10/19/20 14:00 98.2 69 18 151/78 (102) 100 Room Air I&O- Last 24 Hours up to 6 AM 10/20/20 05:59 Intake Total 1610 ml Output Total 0 ml Balance 1610 ml ANAHI MATHIS MD Oct 20, 2020 11:54
[2020-10-20] MEDS: amLODIPine 5 MG TAB PO SCH (12:55)
[2020-10-20 14:00] VITALS: BP 119/54
[2020-10-20] MEDS: SENNA 8.6 MG TAB (SENOKOT) PO PRN (20:50)
[2020-10-20] MEDS: haloperidoL 1 MG TAB PO SCH (20:50)
[2020-10-21 06:00] VITALS: BP 116/62
[2020-10-21] MEDS: LEVOTHYROXINE 100MCG TABLET (0.1MG) PO SCH (06:00)
[2020-10-21] MEDS: QUEtiapine FUMARATE 25 MG TAB PO SCH ×2 (08:14→21:35)
[2020-10-21] MEDS: HEPARIN SOD (PORCINE) 5000UNITS/ML 1ML VIAL/SYRINGE SQ SCH ×2 (08:14→21:35)
[2020-10-21] MEDS: DOCUSATE SODIUM 100MG CAPSULE PO SCH ×2 (08:14→21:35)
[2020-10-21] MEDS: amLODIPine 5 MG TAB PO SCH (08:16)
[2020-10-21] MEDS: haloperidoL 1 MG TAB PO SCH (21:35)
[2020-10-22 06:00] VITALS: BP 148/63
[2020-10-22] MEDS: LEVOTHYROXINE 100MCG TABLET (0.1MG) PO SCH (06:22)
[2020-10-22] MEDS: DOCUSATE SODIUM 100MG CAPSULE PO SCH ×2 (08:16→21:10)
[2020-10-22] MEDS: HEPARIN SOD (PORCINE) 5000UNITS/ML 1ML VIAL/SYRINGE SQ SCH ×2 (08:16→21:15)
[2020-10-22] MEDS: QUEtiapine FUMARATE 25 MG TAB PO SCH ×2 (08:16→21:10)
[2020-10-22] MEDS: amLODIPine 5 MG TAB PO SCH (08:17)
[2020-10-22] MEDS: haloperidoL 1 MG TAB PO SCH (21:10)
[2020-10-23 06:00] VITALS: BP 145/64
[2020-10-23] MEDS: LEVOTHYROXINE 100MCG TABLET (0.1MG) PO SCH (06:19)
[2020-10-23] MEDS: DOCUSATE SODIUM 100MG CAPSULE PO SCH ×2 (09:51→20:53)
[2020-10-23] MEDS: HEPARIN SOD (PORCINE) 5000UNITS/ML 1ML VIAL/SYRINGE SQ SCH ×2 (09:51→20:53)
[2020-10-23] MEDS: amLODIPine 5 MG TAB PO SCH (09:51)
[2020-10-23] MEDS: QUEtiapine FUMARATE 25 MG TAB PO SCH ×2 (09:51→20:53)
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
[2020-10-23] MEDS: haloperidoL 1 MG TAB PO SCH (20:53)
[2020-10-24] MEDS: LEVOTHYROXINE 100MCG TABLET (0.1MG) PO SCH (05:52)
[2020-10-24 06:00] VITALS: BP 105/65
[2020-10-24] MEDS: QUEtiapine FUMARATE 25 MG TAB PO SCH ×2 (09:08→20:18)
[2020-10-24] MEDS: DOCUSATE SODIUM 100MG CAPSULE PO SCH ×2 (09:09→20:18)
[2020-10-24] MEDS: amLODIPine 5 MG TAB PO SCH (09:09)
[2020-10-25 06:00] VITALS: BP 154/78
[2020-10-25] MEDS: LEVOTHYROXINE 100MCG TABLET (0.1MG) PO SCH (06:00)
[2020-10-25] MEDS: QUEtiapine FUMARATE 25 MG TAB PO SCH ×2 (09:43→21:22)
[2020-10-25] MEDS: DOCUSATE SODIUM 100MG CAPSULE PO SCH ×2 (09:43→21:22)
[2020-10-25] MEDS: amLODIPine 5 MG TAB PO SCH (09:43)
[2020-10-25] MEDS: SENNA 8.6 MG TAB (SENOKOT) PO PRN (21:22)
[2020-10-26] MEDS: LEVOTHYROXINE 100MCG TABLET (0.1MG) PO SCH (05:46)
[2020-10-26 06:00] VITALS: BP 96/47
[2020-10-26] MEDS: amLODIPine 5 MG TAB PO SCH (08:00)
[2020-10-26] MEDS: DOCUSATE SODIUM 100MG CAPSULE PO SCH ×2 (08:00→19:47)
[2020-10-26] MEDS: QUEtiapine FUMARATE 25 MG TAB PO SCH ×2 (08:00→19:47)
[2020-10-26] MEDS: ACETAMINOPHEN TAB 650MG DOSE (2X325MG) PO PRN ×2 (15:47→19:47)
[2020-10-27] MEDS: LEVOTHYROXINE 100MCG TABLET (0.1MG) PO SCH (05:49)
[2020-10-27 06:38] VITALS: BP 150/76
[2020-10-27] MEDS: DOCUSATE SODIUM 100MG CAPSULE PO SCH ×2 (08:35→20:07)
[2020-10-27] MEDS: QUEtiapine FUMARATE 25 MG TAB PO SCH ×2 (08:35→20:07)
[2020-10-27] MEDS: amLODIPine 5 MG TAB PO SCH (08:36)
[2020-10-27] MEDS: ACETAMINOPHEN TAB 650MG DOSE (2X325MG) PO PRN (16:49)
[2020-10-28 06:24] VITALS: BP 133/88
[2020-10-28] MEDS: LEVOTHYROXINE 100MCG TABLET (0.1MG) PO SCH (06:26)
[2020-10-28] MEDS: QUEtiapine FUMARATE 25 MG TAB PO SCH ×2 (08:45→20:17)
[2020-10-28] MEDS: amLODIPine 5 MG TAB PO SCH (08:45)
[2020-10-28] MEDS: DOCUSATE SODIUM 100MG CAPSULE PO SCH ×2 (08:46→20:17)
--- NOTE | 2020-10-28 12:07 | IPNPDOC ---
Date Seen The patient was seen on 10/28/20. Progress Note SUBJECTIVE: Patient comfortable in bed, awake, no complaints. PHYSICAL EXAMINATION: VITAL SIGNS: Please see below. GENERAL: No distress HEENT: Normocephalic, atraumatic, moist mucous membranes NECK: Supple CARDIOVASCULAR EXAMINATION: S1, S2, no murmurs RESPIRATORY EXAMINATION: Clear to auscultation, no wheezing ABDOMINAL EXAMINATION: Soft, nontender, nondistended, positive bowel sounds EXTREMITIES: Range of motion intact SKIN: No rash NEUROLOGICAL EXAMINATION: no focal deficits PSYCHIATRIC EXAMINATION: Calm and cooperative LABORATORY DATA, IMAGING STUDIES, MICROBIOLOGY: Please see below. ASSESSMENT AND PLAN: 85-year-old male with past medical history of dementia and is awaiting trial regarding placement. PROBLEMS: 1. Dementia. Lewy body/Parkinson's. Has episodes of violent behavior, no issues over the past 1-2 weeks. Continue Seroquel Having social issues regarding placement, has court date next week. 2. Hypertension Continue Norvasc 3. Hypothyroidism. Continue levothyroxine DVT prophylaxis: Not needed as patient is ambulatory and ALC status at this time. VS, I&O, 24H, Fishbone Vital Signs/I&O Vital Signs Date Time Temp Pulse Resp B/P (MAP) Pulse Ox O2 Delivery O2 Flow Rate FiO2 10/28/20 08:45 59 133/88 10/28/20 06:24 98.0 20 97 Room Air I&O- Last 24 Hours up to 6 AM 10/28/20 06:00 Intake Total 1680 ml Output Total 0 ml Balance 1680 ml WALTER KINNEY MD Oct 28, 2020 12:07
[2020-10-28] MEDS: ACETAMINOPHEN TAB 650MG DOSE (2X325MG) PO PRN (18:31)
[2020-10-29] MEDS: LEVOTHYROXINE 100MCG TABLET (0.1MG) PO SCH (05:53)
[2020-10-29 06:00] VITALS: BP 114/70
[2020-10-29 09:03] VITALS: BP 116/70
[2020-10-29] MEDS: DOCUSATE SODIUM 100MG CAPSULE PO SCH ×2 (09:03→19:52)
[2020-10-29] MEDS: QUEtiapine FUMARATE 25 MG TAB PO SCH ×2 (09:03→19:51)
[2020-10-29] MEDS: amLODIPine 5 MG TAB PO SCH (09:03)
[2020-10-30] MEDS: LEVOTHYROXINE 100MCG TABLET (0.1MG) PO SCH (05:18)
[2020-10-30 06:00] VITALS: BP 140/70
[2020-10-30] MEDS: QUEtiapine FUMARATE 25 MG TAB PO SCH ×2 (09:05→19:54)
[2020-10-30] MEDS: DOCUSATE SODIUM 100MG CAPSULE PO SCH ×2 (09:05→19:54)
[2020-10-30] MEDS: amLODIPine 5 MG TAB PO SCH (09:07)
[2020-10-30] MEDS: ACETAMINOPHEN TAB 650MG DOSE (2X325MG) PO PRN (19:54)
[2020-10-30] MEDS: SENNA 8.6 MG TAB (SENOKOT) PO PRN (19:54)
[2020-10-31 10:04] VITALS: BP 136/66
[2020-10-31] MEDS: LEVOTHYROXINE 100MCG TABLET (0.1MG) PO SCH (10:04)
[2020-10-31] MEDS: QUEtiapine FUMARATE 25 MG TAB PO SCH ×2 (10:04→21:24)
[2020-10-31] MEDS: amLODIPine 5 MG TAB PO SCH (10:04)
[2020-10-31] MEDS: DOCUSATE SODIUM 100MG CAPSULE PO SCH ×2 (10:04→21:23)
[2020-10-31 12:00] VITALS: BP 175/85
[2020-10-31 12:25] VITALS: BP 137/70
[2020-10-31] MEDS ORDERED: NS 1,000 ML IV ONE (13:00)
[2020-10-31 13:24] LABS: INR 0.95; PROTHROMBIN TIME 12.9 SECONDS (12.5-14.3)
[2020-10-31 13:25] LABS: PARTIAL THROMBOPLASTIN TIME 20.8 SECONDS (24.2-38.5)
[2020-10-31 13:29] LABS: CPK CREATINE PHOSPHOKINASE 80 U/L (39-308); TROPONIN I < 0.02 NG/ML (< 0.10)
[2020-10-31 13:32] LABS: ALBUMIN 3.4 GM/DL (3.2-5.2); BILIRUBIN,TOTAL 0.2 MG/DL (0.2-1.0); CALCIUM LEVEL 9.5 MG/DL (8.8-10.2); CREATININE FOR GFR 1.64 MG/DL (0.70-1.30); GLOMERULAR FILTRATION RATE 42.9 (>35); POTASSIUM SERUM 5.5 MEQ/L (3.5-5.1)
[2020-10-31 14:07] LABS: BASO % 0.5 % (0.0-1.0); EOS # 0.2 10^3/uL (0.0-0.5); EOS % 4.3 % (0.0-3.0); HEMATOCRIT 33.7 % (42.0-52.0); HEMOGLOBIN 11.1 g/dl (13.5-17.5); LYMPH # 0.9 10^3/uL (1.5-5.0); LYMPH % 22.9 % (24.0-44.0); MEAN CORPUSCULAR HEMOGLOBIN 31.8 pg (27.0-33.0); MEAN CORPUSCULAR HGB CONC 32.9 g/dl (32.0-36.5); MEAN CORPUSCULAR VOLUME 96.6 fl (80.0-96.0); MONO # 0.5 10^3/uL (0.0-0.8); MONO % 11.6 % (2.0-8.0); NEUTROPHILS # 2.4 10^3/uL (1.5-8.5); NEUTROPHILS % 60.4 % (36.0-66.0); PLATELET COUNT, AUTOMATED 193 10^3/uL (150-450); RED BLOOD COUNT 3.49 10^6/uL (4.30-6.10)
[2020-10-31 17:00] VITALS: BP 142/54
[2020-10-31] MEDS ORDERED: NS 500 ML IV ONE (17:00)
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
[2020-10-31 19:16] LABS: ALBUMIN 3.4 GM/DL (3.2-5.2); ALT/SGPT 25 U/L (12-78); BILIRUBIN,TOTAL 0.2 MG/DL (0.2-1.0); BLOOD UREA NITROGEN 33 MG/DL (7-18); CALCIUM LEVEL 9.2 MG/DL (8.8-10.2); CARBON DIOXIDE LEVEL 26 MEQ/L (21-32); CHLORIDE LEVEL 106 MEQ/L (98-107); CK-MB VALUE MASS 2.6 NG/ML (<3.6); CPK CREATINE PHOSPHOKINASE 90 U/L (39-308); CREATININE FOR GFR 1.37 MG/DL (0.70-1.30); GLOMERULAR FILTRATION RATE 52.8 (>35); GLUCOSE, FASTING 90 MG/DL (70-100); MB/CK RELATIVE INDEX 2.89 (< OR =4); POTASSIUM SERUM 4.4 MEQ/L (3.5-5.1); SODIUM LEVEL 138 MEQ/L (136-145); TOTAL PROTEIN 7.4 GM/DL (6.4-8.2); TROPONIN I < 0.02 NG/ML (< 0.10)
[2020-11-01 06:00] VITALS: BP 121/72
[2020-11-01] MEDS: LEVOTHYROXINE 100MCG TABLET (0.1MG) PO SCH (06:22)
[2020-11-01] MEDS ORDERED: ISOVUE-370 76% 100ML VIAL As Ordered ONE (07:25)
[2020-11-01 08:25] LABS: CREATININE FOR GFR 1.23 MG/DL (0.70-1.30); GLOMERULAR FILTRATION RATE 59.8 (>35); POTASSIUM SERUM 4.7 MEQ/L (3.5-5.1)
--- NOTE | 2020-11-01 09:30 | REP ---
INDICATION: right chest pain , dizziness and collapse. COMPARISON: Portable chest 09/20/2020 TECHNIQUE: CT angiogram chest performed following the intravenous administration of 75 cc of Isovue 370. Sagittal and coronal reconstruction images are performed. FINDINGS: Lungs: Shows only minor dependent atelectatic change posteriorly in the lower lung zones. Mediastinum: No adenopathy. Some coronary artery calcifications are noted. Pulmonary arteries: No evidence of pulmonary embolism. Mechelle: No adenopathy. Axilla: No adenopathy. Pleura: No effusion. Heart: Not enlarged. Thoracic aorta: The aorta is tortuous, ectatic and with calcifications at the arch and descending portion. Upper abdominal structures: No hiatal hernia. Upper pole cyst of the left kidney noted. Adrenal glands gallbladder, liver and spleen without acute finding. Pancreas shows atrophy but no mass or other acute finding. Visualized osseous structures: Age-appropriate degenerative changes without acute fracture compression deformity. IMPRESSION: No CT evidence of pulmonary embolism.No infiltrate seen. No mediastinal or hilar mass. A tortuous calcified ectatic aorta without aneurysm or dissection. <Electronically signed by Dominick Zavala > 11/01/20 0933
[2020-11-01] MEDS: QUEtiapine FUMARATE 25 MG TAB PO SCH ×2 (10:08→20:57)
[2020-11-01] MEDS: DOCUSATE SODIUM 100MG CAPSULE PO SCH ×2 (10:08→20:57)
[2020-11-01] MEDS: NS 1,000 ML IV SCH (10:08)
--- NOTE | 2020-11-01 10:58 | REP ---
INDICATION: new tremors and increased confusion. COMPARISON: Comparison study September 20, 2020.. TECHNIQUE: Helical scanning is acquired. 5 mm axial images were reformatted. Coronal MPR images were generated. FINDINGS: Bone window settings demonstrate an intact bony calvarium. There is no evidence of skull fracture or incidental bony calvarial lesion. The visualized paranasal sinuses appear clear. No intraorbital abnormality is seen. On soft tissue window setting images; the lateral, third, and fourth ventricles are normal in size and position. Willson-white differentiation pattern is normal above and below the tentorium. There are is no evidence of intracranial hemorrhage. No mass, edema, infarction, or midline shift is seen. No extra-axial fluid collection is appreciated. There is generalized volume loss and small vessel changes are noted in the periventricular white matter. These findings are stable when compared with the September 20, 2020 study. IMPRESSION: No acute intracranial abnormality.. <Electronically signed by Omi Schaffer > 11/01/20 [id number]
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
--- NOTE | 2020-11-02 00:40 | ECGEPIP ---
[facility] Test Date: 2020-10-31 Pat Name: BRISA VIDALES Department: Room: [place] [address] Gender: Male Carburizer: ZARIA : [id number] Requested By: ANAHI MATHIS Order Number: [id number] Reading MD: Robson Capellan Measurements Intervals [place] Rate: 68 P: 59 UT: 156 QRS: 23 QRSD: 84 T: 26 QT: 380 QTc: 404 Interpretive Statements Normal sinus rhythm Last tracing on 09/20/20 at 10:19, no significant changes Electronically Signed on 11-02-2020 0:40:40 EST by Rosbon Capellan
[2020-11-02] MEDS: LEVOTHYROXINE 100MCG TABLET (0.1MG) PO SCH (05:30)
[2020-11-02] MEDS: NS 1,000 ML IV SCH (05:33)
[2020-11-02 05:58] VITALS: BP 133/71
[2020-11-02] MEDS: QUEtiapine FUMARATE 25 MG TAB PO SCH ×2 (09:43→19:46)
[2020-11-02] MEDS: DOCUSATE SODIUM 100MG CAPSULE PO SCH ×2 (09:43→19:46)
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
--- NOTE | 2020-11-02 13:29 | REP ---
INDICATION: fall and complaining of groin painand suprapubic pain. COMPARISON: None. TECHNIQUE: Noncontrast scanning through the pelvis with coronal and sagittal reconstructions. FINDINGS: Abdominal aorta shows some atherosclerotic calcifications seen extending into the iliac and femoral arteries without aneurysm. No periaortic, intra-abdominal or pelvic lymphadenopathy. There is no ventral or inguinal hernia. Bladder shows slightly hyperdense urine likely related to CT angio chest yesterday. No distal ureteral dilatation or stone and no bladder stone, mass or wall thickening. Distal left colon and sigmoid with diverticulosis but no diverticulitis or colitis cecum shows no adjacent inflammatory change small bowel loops in the lower abdomen abdomen and pelvis on this examination were unremarkable. The bone windows show the sacrum, SI joints and iliac wings without fracture or destructive lesion. There is degenerative facet arthritis from L3-4 through L5-S1 without spondylolysis or spondylolisthesis. There is disc space narrowing at L4-5 with small osteophytes at endplates and sparing the level above and below no compression fracture or destructive lesions. Bony hips showed mild joint space narrowing consistent with some degree of chondromalacia there is subchondral cystic change and sclerosis at the acetabular roof of the right greater than left. Rim osteophytes are noted the acetabulum. There are anterior column lucencies subchondral cysts on the right all part of a degenerative process. No visible or displaced fracture. Pubic rami, symphysis pubis and pelvis without fracture. IMPRESSION: 1. Osteoarthritic changes of both hips with joint space narrowing and acetabular roof sclerosis subchondral cystic changes, right slightly greater than left. No visible fracture. 2. Pelvis and sacrum without fracture. Lower lumbar spine with degenerative disc changes at L4-5 as well as facet arthritis at the 3 lower most levels. 3. No intrapelvic soft tissue abnormality. <Electronically signed by Dominick Zavala > 11/02/20 [id number]
[2020-11-03] MEDS: LEVOTHYROXINE 100MCG TABLET (0.1MG) PO SCH (05:32)
[2020-11-03 06:00] VITALS: BP 94/57
[2020-11-03] MEDS: DOCUSATE SODIUM 100MG CAPSULE PO SCH ×2 (07:43→19:39)
[2020-11-03] MEDS: QUEtiapine FUMARATE 25 MG TAB PO SCH ×2 (07:43→19:39)
[2020-11-03] MEDS: ACETAMINOPHEN 500 MG TAB PO SCH (19:40)
[2020-11-04 06:00] VITALS: BP 124/57
[2020-11-04] MEDS: LEVOTHYROXINE 100MCG TABLET (0.1MG) PO SCH (06:11)
[2020-11-04] MEDS: QUEtiapine FUMARATE 25 MG TAB PO SCH ×2 (08:14→21:37)
[2020-11-04] MEDS: DOCUSATE SODIUM 100MG CAPSULE PO SCH ×2 (08:14→21:37)
[2020-11-04] MEDS: ACETAMINOPHEN 500 MG TAB PO SCH ×2 (08:14→21:37)
[2020-11-05] MEDS: LEVOTHYROXINE 100MCG TABLET (0.1MG) PO SCH (05:57)
[2020-11-05 06:00] VITALS: BP 149/64
[2020-11-05] MEDS: QUEtiapine FUMARATE 25 MG TAB PO SCH ×2 (09:19→20:46)
[2020-11-05] MEDS: DOCUSATE SODIUM 100MG CAPSULE PO SCH ×2 (09:19→20:46)
[2020-11-05] MEDS: ACETAMINOPHEN 500 MG TAB PO SCH ×2 (09:20→20:46)
[2020-11-06] MEDS: LEVOTHYROXINE 100MCG TABLET (0.1MG) PO SCH (05:23)
[2020-11-06 06:00] VITALS: BP 125/53
[2020-11-06] MEDS: DOCUSATE SODIUM 100MG CAPSULE PO SCH ×2 (08:47→20:08)
[2020-11-06] MEDS: ACETAMINOPHEN 500 MG TAB PO SCH ×2 (08:47→20:08)
[2020-11-06] MEDS: QUEtiapine FUMARATE 25 MG TAB PO SCH ×2 (08:48→20:08)
[2020-11-06] MEDS: ACETAMINOPHEN TAB 650MG DOSE (2X325MG) PO PRN (18:38)
[2020-11-07] MEDS: LEVOTHYROXINE 100MCG TABLET (0.1MG) PO SCH (05:26)
[2020-11-07 06:00] VITALS: BP 144/60
[2020-11-07] MEDS: QUEtiapine FUMARATE 25 MG TAB PO SCH ×2 (08:36→21:44)
[2020-11-07] MEDS: ACETAMINOPHEN 500 MG TAB PO SCH ×2 (08:36→21:44)
[2020-11-07] MEDS: DOCUSATE SODIUM 100MG CAPSULE PO SCH ×2 (08:36→21:43)
[2020-11-08] MEDS: LEVOTHYROXINE 100MCG TABLET (0.1MG) PO SCH (06:35)
[2020-11-08 07:05] VITALS: BP 148/60
[2020-11-08] MEDS ORDERED: NS 1,000 ML IV SCH (08:20)
[2020-11-08] MEDS: ACETAMINOPHEN 500 MG TAB PO SCH ×3 (09:00→20:24)
[2020-11-08] MEDS: DOCUSATE SODIUM 100MG CAPSULE PO SCH ×2 (09:00→20:25)
[2020-11-08] MEDS: QUEtiapine FUMARATE 25 MG TAB PO SCH ×2 (10:21→20:25)
[2020-11-09 06:00] VITALS: BP 156/66
[2020-11-09] MEDS: LEVOTHYROXINE 100MCG TABLET (0.1MG) PO SCH (06:19)
[2020-11-09] MEDS: ACETAMINOPHEN TAB 650MG DOSE (2X325MG) PO PRN (06:25)
[2020-11-09] MEDS: QUEtiapine FUMARATE 25 MG TAB PO SCH ×2 (07:40→19:53)
[2020-11-09] MEDS: ACETAMINOPHEN 500 MG TAB PO SCH ×2 (07:40→19:53)
[2020-11-09] MEDS: DOCUSATE SODIUM 100MG CAPSULE PO SCH ×2 (07:40→19:53)
[2020-11-10 05:52] VITALS: BP 107/73
[2020-11-10] MEDS: LEVOTHYROXINE 100MCG TABLET (0.1MG) PO SCH (06:00)
[2020-11-10] MEDS: QUEtiapine FUMARATE 25 MG TAB PO SCH ×3 (08:18→20:05)
[2020-11-10] MEDS: ACETAMINOPHEN 500 MG TAB PO SCH ×3 (08:20→20:06)
[2020-11-10] MEDS: DOCUSATE SODIUM 100MG CAPSULE PO SCH ×2 (08:20→20:09)
[2020-11-10] MEDS ORDERED: QUEtiapine FUMARATE 12.5 MG HALF-TAB PO ONE (17:30)
[2020-11-11] MEDS: LEVOTHYROXINE 100MCG TABLET (0.1MG) PO SCH (05:23)
[2020-11-11 06:00] VITALS: BP 115/79
[2020-11-11] MEDS: DOCUSATE SODIUM 100MG CAPSULE PO SCH ×2 (08:08→21:00)
[2020-11-11] MEDS: QUEtiapine FUMARATE 25 MG TAB PO SCH ×2 (08:08→21:00)
[2020-11-11] MEDS: ACETAMINOPHEN 500 MG TAB PO SCH ×2 (08:08→21:00)
[2020-11-12 06:00] VITALS: BP 127/68
[2020-11-12] MEDS: LEVOTHYROXINE 100MCG TABLET (0.1MG) PO SCH (06:00)
[2020-11-12] MEDS: ACETAMINOPHEN 500 MG TAB PO SCH ×2 (11:03→20:03)
[2020-11-12] MEDS: QUEtiapine FUMARATE 25 MG TAB PO SCH ×2 (11:04→20:03)
[2020-11-12] MEDS: DOCUSATE SODIUM 100MG CAPSULE PO SCH ×2 (11:04→20:03)
[2020-11-13 06:00] VITALS: BP 148/62
[2020-11-13] MEDS: LEVOTHYROXINE 100MCG TABLET (0.1MG) PO SCH (06:17)
[2020-11-13] MEDS: ACETAMINOPHEN 500 MG TAB PO SCH ×2 (07:54→20:08)
[2020-11-13] MEDS: DOCUSATE SODIUM 100MG CAPSULE PO SCH ×2 (07:54→20:08)
[2020-11-13] MEDS: QUEtiapine FUMARATE 25 MG TAB PO SCH ×2 (07:54→20:08)
--- NOTE | 2020-11-13 15:08 | IPNPDOC ---
Text Note Date of Service The patient was seen on 11/13/20. NOTE Subjective: -No acute complaints -Staff reporting lability in temperament, aggressive at times. Objective Physical Examination General: Alert, Cooperative, No Acute Distress ENT: Atraumatic, Pharynx Normal Neck: Supple, no JVD Chest: Clear to auscultation, Normal air movement, breathing comfortably on room air Heart: Rate Normal, Regular Rhythm, no m/r/g Abdomen: Normal bowel sounds, soft, NTND Extremity Exam: WWP, no LE edema Neuro Exam: moves all 4 extremities, sometimes words are clear sometimes he mumbles Labs: No new labs. Last labs reviewed. 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 Dementia (Lewy Body dementia/Parkinson's dementia?) -Psych also thought there may be element of vascular dementia as well -MRI showed no acute pathology -AMS workup showed negative RPR, neg HIV, TSH low but T3 and T4 normal -Restore scheduled haldol at bed time and continue seroquel BID -PFS/SW working on placement CKD Stage 2-3: stable. No recent labs or issues to cause concern -avoid nephrotoxic medications Anemia, macrocytic -Vit B12, folate wnl -No s/s of bleeding Hypothyroidism -TSH low, T3 and T4 wnl -C/w levothyroxine 100 mcg PO daily for now reduced from 125 mcg DVT ppx: -Heparin sc VS,Fishbone, I+O VS, Fishbone, I+O Vital Signs Date Time Temp Pulse Resp B/P (MAP) Pulse Ox O2 Delivery O2 Flow Rate FiO2 11/13/20 06:00 98.4 64 18 148/62 (90) 100 Room Air I&O- Last 24 Hours up to 6 AM 11/13/20 06:00 Intake Total 840 ml Output Total 0 ml Balance 840 ml ILAN JOSHUA MD Nov 13, 2020 15:08
[2020-11-13] MEDS: haloperidoL 0.5 MG TAB PO SCH (20:08)
[2020-11-14 06:00] VITALS: BP 130/57
[2020-11-14] MEDS: LEVOTHYROXINE 100MCG TABLET (0.1MG) PO SCH (06:33)
[2020-11-14] MEDS: DOCUSATE SODIUM 100MG CAPSULE PO SCH ×2 (08:21→21:12)
[2020-11-14] MEDS: ACETAMINOPHEN 500 MG TAB PO SCH ×2 (08:21→21:11)
[2020-11-14] MEDS: QUEtiapine FUMARATE 25 MG TAB PO SCH ×2 (08:21→21:11)
[2020-11-14] MEDS: haloperidoL 0.5 MG TAB PO SCH (21:11)
[2020-11-15] MEDS ORDERED: EPINEPHrine INJ 1 MG/ML 1ML AMP IM PRN
[2020-11-15] MEDS ORDERED: diphenhydrAMINE 50MG/ML VIAL (J1200) IM PRN
[2020-11-15] MEDS: LEVOTHYROXINE 100MCG TABLET (0.1MG) PO SCH (05:35)
[2020-11-15 06:00] VITALS: BP 130/56
[2020-11-15] MEDS: QUEtiapine FUMARATE 25 MG TAB PO SCH ×2 (08:00→20:00)
[2020-11-15] MEDS: DOCUSATE SODIUM 100MG CAPSULE PO SCH ×2 (08:00→20:00)
[2020-11-15] MEDS: ACETAMINOPHEN 500 MG TAB PO SCH ×2 (08:00→20:01)
[2020-11-15] MEDS ORDERED: COVID-19 VAC,AD26(JANSSEN)/PF 0.5ML SYRINGE (EUA) IM ONE (12:00)
[2020-11-15] MEDS: haloperidoL 0.5 MG TAB PO SCH (20:00)
[2020-11-16] MEDS: LEVOTHYROXINE 100MCG TABLET (0.1MG) PO SCH (06:04)
[2020-11-16 06:24] VITALS: BP 149/69
[2020-11-16] MEDS: ACETAMINOPHEN 500 MG TAB PO SCH ×2 (08:43→19:52)
[2020-11-16] MEDS: QUEtiapine FUMARATE 25 MG TAB PO SCH ×2 (08:44→19:52)
[2020-11-16] MEDS: DOCUSATE SODIUM 100MG CAPSULE PO SCH ×2 (08:44→19:51)
[2020-11-16] MEDS: haloperidoL 0.5 MG TAB PO SCH (19:51)
[2020-11-17 05:49] VITALS: BP 144/68
[2020-11-17] MEDS: LEVOTHYROXINE 100MCG TABLET (0.1MG) PO SCH (05:54)
[2020-11-17] MEDS: ACETAMINOPHEN 500 MG TAB PO SCH ×2 (09:39→20:09)
[2020-11-17] MEDS: DOCUSATE SODIUM 100MG CAPSULE PO SCH ×2 (09:39→20:08)
[2020-11-17] MEDS: QUEtiapine FUMARATE 25 MG TAB PO SCH ×2 (09:39→22:00)
[2020-11-17] MEDS: haloperidoL 0.5 MG TAB PO SCH (20:09)
[2020-11-17] MEDS: SENNA 8.6 MG TAB (SENOKOT) PO PRN (20:09)
[2020-11-18] MEDS: LEVOTHYROXINE 100MCG TABLET (0.1MG) PO SCH (05:52)
[2020-11-18 06:09] VITALS: BP 172/83
[2020-11-18] MEDS: DOCUSATE SODIUM 100MG CAPSULE PO SCH ×2 (08:31→20:34)
[2020-11-18] MEDS: QUEtiapine FUMARATE 25 MG TAB PO SCH ×2 (08:31→20:35)
[2020-11-18] MEDS: ACETAMINOPHEN 500 MG TAB PO SCH ×2 (08:31→20:34)
--- NOTE | 2020-11-18 11:30 | IPNPDOC ---
Text Note Date of Service The patient was seen on 11/18/20. NOTE Subjective: Complains of right heel pain. There is a corn. Pain worse during walking. Physical Examination General: Alert, Cooperative, No Acute Distress ENT: Atraumatic, Pharynx Normal Neck: Supple, no JVD Chest: Clear to auscultation, Normal air movement, breathing comfortably on room air Heart: Rate Normal, Regular Rhythm, no m/r/g Abdomen: Normal bowel sounds, soft, NTND Extremity Exam: WWP, no LE edema Neuro Exam: moves all 4 extremities, sometimes words are clear sometimes he mumbles Labs: No new labs. Last labs reviewed. 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 Dementia (Lewy Body dementia/Parkinson's dementia?) Psych also thought there may be element of vascular dementia as well MRI showed no acute pathology AMS workup showed negative RPR, neg HIV, TSH low but T3 and T4 normal scheduled haldol at bed time and continue seroquel BID PFS/SW working on placement CKD Stage 2-3: stable will get labs Anemia, macrocytic Vit B12, folate wnl No s/s of bleeding Hypothyroidism TSH low, T3 and T4 wnl C/w levothyroxine 100 mcg PO daily for now reduced from 125 mcg H/O hypertension seems to have resolved likely due to advancing age, sarcopenia, decreasing oral intake. taken off antihypertensive medications as was having hypotensive episodes. Heel pain pain during walking tylenol bid. DVT ppx: Heparin sc VS,Fishbone, I+O VS, Fishbone, I+O Vital Signs Date Time Temp Pulse Resp B/P (MAP) Pulse Ox O2 Delivery O2 Flow Rate FiO2 11/18/20 06:09 98.6 66 20 172/83 (112) 95 Room Air I&O- Last 24 Hours up to 6 AM 11/18/20 06:00 Intake Total 1150 ml Output Total 0 ml Balance 1150 ml ANAHI MATHIS MD Nov 18, 2020 08:09
[2020-11-18 13:05] VITALS: BP 133/65
[2020-11-18] MEDS: haloperidoL 0.5 MG TAB PO SCH (20:34)
[2020-11-18] MEDS: SENNA 8.6 MG TAB (SENOKOT) PO PRN (20:34)
[2020-11-19] MEDS: LEVOTHYROXINE 100MCG TABLET (0.1MG) PO SCH (05:28)
[2020-11-19 06:00] VITALS: BP 137/64
[2020-11-19] MEDS: ACETAMINOPHEN 500 MG TAB PO SCH ×2 (08:42→21:33)
[2020-11-19] MEDS: DOCUSATE SODIUM 100MG CAPSULE PO SCH ×2 (08:42→21:33)
[2020-11-19] MEDS: QUEtiapine FUMARATE 25 MG TAB PO SCH ×2 (08:43→21:34)
[2020-11-19 09:48] LABS: HEMATOCRIT 36.2 % (42.0-52.0); HEMOGLOBIN 11.9 g/dl (13.5-17.5); MEAN CORPUSCULAR HEMOGLOBIN 32.2 pg (27.0-33.0); MEAN CORPUSCULAR HGB CONC 32.9 g/dl (32.0-36.5); MEAN CORPUSCULAR VOLUME 98.1 fl (80.0-96.0); PLATELET COUNT, AUTOMATED 226 10^3/uL (150-450); RED BLOOD COUNT 3.69 10^6/uL (4.30-6.10); WHITE BLOOD COUNT 3.4 10^3/uL (4.0-10.0)
[2020-11-19 09:58] LABS: CALCIUM LEVEL 8.9 MG/DL (8.8-10.2); CREATININE FOR GFR 1.39 MG/DL (0.70-1.30); POTASSIUM SERUM 5.3 MEQ/L (3.5-5.1)
[2020-11-19] MEDS: ACETAMINOPHEN TAB 650MG DOSE (2X325MG) PO PRN (17:10)
[2020-11-19] MEDS: haloperidoL 0.5 MG TAB PO SCH (21:34)
[2020-11-20] MEDS: LEVOTHYROXINE 100MCG TABLET (0.1MG) PO SCH (05:55)
[2020-11-20 06:00] VITALS: BP 122/57
[2020-11-20] MEDS: ACETAMINOPHEN 500 MG TAB PO SCH ×2 (08:28→20:13)
[2020-11-20] MEDS: DOCUSATE SODIUM 100MG CAPSULE PO SCH ×2 (08:28→20:14)
[2020-11-20] MEDS: QUEtiapine FUMARATE 25 MG TAB PO SCH ×2 (08:28→20:14)
[2020-11-20] MEDS: haloperidoL 0.5 MG TAB PO SCH (20:14)
[2020-11-21 06:00] VITALS: BP 133/59
[2020-11-21] MEDS: LEVOTHYROXINE 100MCG TABLET (0.1MG) PO SCH (06:22)
[2020-11-21] MEDS: ACETAMINOPHEN 500 MG TAB PO SCH ×2 (08:24→20:18)
[2020-11-21] MEDS: QUEtiapine FUMARATE 25 MG TAB PO SCH ×2 (08:24→20:17)
[2020-11-21] MEDS: DOCUSATE SODIUM 100MG CAPSULE PO SCH ×2 (08:24→20:17)
[2020-11-21] MEDS: haloperidoL 0.5 MG TAB PO SCH (20:17)
[2020-11-22 06:00] VITALS: BP 124/56
[2020-11-22] MEDS: LEVOTHYROXINE 100MCG TABLET (0.1MG) PO SCH (06:23)
[2020-11-22] MEDS: SENNA 8.6 MG TAB (SENOKOT) PO PRN (06:23)
[2020-11-22] MEDS: DOCUSATE SODIUM 100MG CAPSULE PO SCH ×2 (09:38→21:53)
[2020-11-22] MEDS: ACETAMINOPHEN 500 MG TAB PO SCH ×2 (09:38→21:52)
[2020-11-22] MEDS: QUEtiapine FUMARATE 25 MG TAB PO SCH ×2 (09:39→21:53)
[2020-11-22] MEDS: haloperidoL 0.5 MG TAB PO SCH (21:53)
[2020-11-23 06:09] VITALS: BP 145/61
[2020-11-23] MEDS: LEVOTHYROXINE 100MCG TABLET (0.1MG) PO SCH (06:54)
[2020-11-23] MEDS: QUEtiapine FUMARATE 25 MG TAB PO SCH ×2 (09:01→20:02)
[2020-11-23] MEDS: ACETAMINOPHEN 500 MG TAB PO SCH ×2 (09:01→20:03)
[2020-11-23] MEDS: DOCUSATE SODIUM 100MG CAPSULE PO SCH ×2 (09:01→20:02)
[2020-11-23] MEDS: haloperidoL 0.5 MG TAB PO SCH (20:03)
[2020-11-24] MEDS: LEVOTHYROXINE 100MCG TABLET (0.1MG) PO SCH (05:18)
[2020-11-24 05:35] VITALS: BP 152/75
[2020-11-24] MEDS: DOCUSATE SODIUM 100MG CAPSULE PO SCH ×2 (11:28→20:07)
[2020-11-24] MEDS: QUEtiapine FUMARATE 25 MG TAB PO SCH ×2 (11:29→20:07)
[2020-11-24] MEDS: ACETAMINOPHEN 500 MG TAB PO SCH ×2 (11:29→20:08)
[2020-11-24] MEDS: haloperidoL 0.5 MG TAB PO SCH (20:08)
[2020-11-25] MEDS: LEVOTHYROXINE 100MCG TABLET (0.1MG) PO SCH (06:33)
[2020-11-25 06:35] VITALS: BP 120/59
[2020-11-25] MEDS: QUEtiapine FUMARATE 25 MG TAB PO SCH ×2 (07:55→20:23)
[2020-11-25] MEDS: ACETAMINOPHEN 500 MG TAB PO SCH ×2 (07:55→20:23)
[2020-11-25] MEDS: DOCUSATE SODIUM 100MG CAPSULE PO SCH ×2 (07:55→20:23)
--- NOTE | 2020-11-25 10:51 | IPNPDOC ---
Text Note Date of Service The patient was seen on 11/25/20. NOTE Subjective: No issues this week. calm and cooperative, walking in the corridor with staff. Heel pain , hip pain controlled no problem with ambulation. Physical Examination General: Alert, Cooperative, No Acute Distress ENT: Atraumatic, Pharynx Normal Neck: Supple, no JVD Chest: Clear to auscultation, Normal air movement, breathing comfortably on room air Heart: Rate Normal, Regular Rhythm, no m/r/g Abdomen: Normal bowel sounds, soft, NTND Extremity Exam: WWP, no LE edema Neuro Exam: moves all 4 extremities, sometimes words are clear sometimes he mumbles Labs: No new labs. labs ordered. Assessment: 85-year-old M with PMHx of hypothyroidism, hypertension, admitted for altered mental status with behavioral abnormality (aggression/violence) and diagnosed with dementia and now awaiting senior living placement. Dementia (Lewy Body dementia/Parkinson's dementia?) Psych also thought there may be element of vascular dementia as well MRI showed no acute pathology AMS workup showed negative RPR, neg HIV, TSH low but T3 and T4 normal scheduled haldol 1.5 mg at bed time and continue seroquel BID PFS/SW working on placement CKD Stage 2-3: stable will get labs Anemia, macrocytic Vit B12, folate wnl No s/s of bleeding Hypothyroidism TSH low, T3 and T4 wnl C/w levothyroxine 100 mcg PO daily for now reduced from 125 mcg H/O hypertension seems to have resolved likely due to advancing age, sarcopenia, decreasing oral intake. taken off antihypertensive medications as was having hypotensive episodes. Heel pain pain during walking tylenol bid. DVT ppx: Heparin sc VS,Fishbone, I+O VS, Fishbone, I+O Vital Signs Date Time Temp Pulse Resp B/P (MAP) Pulse Ox O2 Delivery O2 Flow Rate FiO2 11/25/20 06:35 95.8 52 18 120/59 (79) 96 Room Air I&O- Last 24 Hours up to 6 AM 11/25/20 06:00 Intake Total 960 ml Output Total 0 ml Balance 960 ml ANAHI MATHIS MD Nov 25, 2020 10:51
[2020-11-25 11:52] LABS: BASO % 0.8 % (0.0-1.0); EOS # 0.3 10^3/uL (0.0-0.5); EOS % 5.4 % (0.0-3.0); HEMATOCRIT 35.3 % (42.0-52.0); HEMOGLOBIN 11.8 g/dl (13.5-17.5); LYMPH # 1.5 10^3/uL (1.5-5.0); LYMPH % 30.3 % (24.0-44.0); MEAN CORPUSCULAR HEMOGLOBIN 32.5 pg (27.0-33.0); MEAN CORPUSCULAR HGB CONC 33.4 g/dl (32.0-36.5); MEAN CORPUSCULAR VOLUME 97.2 fl (80.0-96.0); MONO # 0.6 10^3/uL (0.0-0.8); MONO % 11.6 % (2.0-8.0); NEUTROPHILS # 2.6 10^3/uL (1.5-8.5); NEUTROPHILS % 51.5 % (36.0-66.0); PLATELET COUNT, AUTOMATED 251 10^3/uL (150-450); RED BLOOD COUNT 3.63 10^6/uL (4.30-6.10)
[2020-11-25 12:22] LABS: CALCIUM LEVEL 8.7 MG/DL (8.8-10.2); CREATININE FOR GFR 1.24 MG/DL (0.70-1.30); FREE T4 0.89 NG/DL (0.76-1.46); GLOMERULAR FILTRATION RATE 59.3 (>35); POTASSIUM SERUM 5.6 MEQ/L (3.5-5.1); THYROID STIMULATING HORMONE 0.286 uIU/ML (0.358-3.740)
[2020-11-25] MEDS: haloperidoL 0.5 MG TAB PO SCH (20:23)
[2020-11-26 06:00] VITALS: BP 163/81
[2020-11-26] MEDS: LEVOTHYROXINE 100MCG TABLET (0.1MG) PO SCH (06:26)
[2020-11-26] MEDS: DOCUSATE SODIUM 100MG CAPSULE PO SCH ×2 (08:02→20:45)
[2020-11-26] MEDS: QUEtiapine FUMARATE 25 MG TAB PO SCH ×2 (08:03→20:46)
[2020-11-26] MEDS: ACETAMINOPHEN 500 MG TAB PO SCH ×2 (08:03→20:45)
[2020-11-26 08:35] LABS: HEMATOCRIT 36.5 % (42.0-52.0); HEMOGLOBIN 12.1 g/dl (13.5-17.5); MEAN CORPUSCULAR HEMOGLOBIN 32.5 pg (27.0-33.0); MEAN CORPUSCULAR HGB CONC 33.2 g/dl (32.0-36.5); MEAN CORPUSCULAR VOLUME 98.1 fl (80.0-96.0); PLATELET COUNT, AUTOMATED 248 10^3/uL (150-450); RED BLOOD COUNT 3.72 10^6/uL (4.30-6.10)
[2020-11-26 08:53] LABS: CALCIUM LEVEL 9.3 MG/DL (8.8-10.2); CREATININE FOR GFR 1.39 MG/DL (0.70-1.30); POTASSIUM SERUM 5.3 MEQ/L (3.5-5.1)
[2020-11-26] MEDS: haloperidoL 0.5 MG TAB PO SCH (20:46)
[2020-11-27 06:00] VITALS: BP 133/62
[2020-11-27] MEDS: LEVOTHYROXINE 100MCG TABLET (0.1MG) PO SCH (06:11)
[2020-11-27] MEDS: QUEtiapine FUMARATE 25 MG TAB PO SCH ×2 (08:42→20:31)
[2020-11-27] MEDS: DOCUSATE SODIUM 100MG CAPSULE PO SCH ×2 (08:42→20:31)
[2020-11-27] MEDS: ACETAMINOPHEN 500 MG TAB PO SCH ×2 (08:43→20:32)
[2020-11-27] MEDS: haloperidoL 0.5 MG TAB PO SCH (20:32)
[2020-11-28 06:00] VITALS: BP 130/70
[2020-11-28] MEDS: LEVOTHYROXINE 100MCG TABLET (0.1MG) PO SCH (06:15)
[2020-11-28] MEDS: ACETAMINOPHEN 500 MG TAB PO SCH ×2 (08:59→20:22)
[2020-11-28] MEDS: DOCUSATE SODIUM 100MG CAPSULE PO SCH ×2 (08:59→20:22)
[2020-11-28] MEDS: QUEtiapine FUMARATE 25 MG TAB PO SCH ×2 (09:00→20:22)
[2020-11-28] MEDS: haloperidoL 0.5 MG TAB PO SCH (20:22)
[2020-11-29] MEDS: LEVOTHYROXINE 100MCG TABLET (0.1MG) PO SCH (05:11)
[2020-11-29 05:17] VITALS: BP 129/66
[2020-11-29] MEDS: QUEtiapine FUMARATE 25 MG TAB PO SCH ×2 (10:56→20:23)
[2020-11-29] MEDS: ACETAMINOPHEN 500 MG TAB PO SCH ×2 (10:57→20:24)
[2020-11-29] MEDS: DOCUSATE SODIUM 100MG CAPSULE PO SCH ×2 (10:57→20:24)
[2020-11-29] MEDS: haloperidoL 0.5 MG TAB PO SCH (20:24)
[2020-11-30 06:00] VITALS: BP 127/63
[2020-11-30] MEDS: LEVOTHYROXINE 100MCG TABLET (0.1MG) PO SCH (06:05)
[2020-11-30] MEDS: QUEtiapine FUMARATE 25 MG TAB PO SCH ×2 (08:19→20:43)
[2020-11-30] MEDS: DOCUSATE SODIUM 100MG CAPSULE PO SCH ×2 (08:19→20:43)
[2020-11-30] MEDS: ACETAMINOPHEN 500 MG TAB PO SCH ×2 (08:22→20:44)
[2020-11-30 14:00] VITALS: BP 149/69
[2020-11-30] MEDS: haloperidoL 0.5 MG TAB PO SCH (20:44)
[2020-12-01] MEDS: LEVOTHYROXINE 100MCG TABLET (0.1MG) PO SCH (05:43)
[2020-12-01 06:00] VITALS: BP 152/68
[2020-12-01] MEDS: ACETAMINOPHEN 500 MG TAB PO SCH ×2 (08:35→20:06)
[2020-12-01] MEDS: QUEtiapine FUMARATE 25 MG TAB PO SCH ×2 (08:35→20:06)
[2020-12-01] MEDS: DOCUSATE SODIUM 100MG CAPSULE PO SCH ×2 (08:35→20:06)
[2020-12-01 14:00] VITALS: BP 128/78
[2020-12-01] MEDS: haloperidoL 0.5 MG TAB PO SCH (20:06)
[2020-12-02 07:01] VITALS: BP 167/85
[2020-12-02] MEDS: LEVOTHYROXINE 100MCG TABLET (0.1MG) PO SCH (07:02)
[2020-12-02] MEDS: QUEtiapine FUMARATE 25 MG TAB PO SCH ×2 (08:03→20:12)
[2020-12-02] MEDS: DOCUSATE SODIUM 100MG CAPSULE PO SCH ×2 (08:03→20:12)
[2020-12-02] MEDS: ACETAMINOPHEN 500 MG TAB PO SCH ×2 (08:04→20:12)
--- NOTE | 2020-12-02 11:04 | IPNPDOC ---
Text Note Date of Service The patient was seen on 12/02/20. NOTE Subjective: No issues this week. Calm and cooperative, walking in the corridor with staff. Heel pain , hip pain controlled no problem with ambulation. Physical Examination General: Alert, Cooperative, No Acute Distress ENT: Atraumatic, Pharynx Normal Neck: Supple, no JVD Chest: Clear to auscultation, Normal air movement, breathing comfortably on room air Heart: Rate Normal, Regular Rhythm, no m/r/g Abdomen: Normal bowel sounds, soft, NTND Extremity Exam: WWP, no LE edema Neuro Exam: moves all 4 extremities, sometimes words are clear sometimes he mumbles Labs: No new labs available at this time Assessment: 85-year-old M with PMHx of hypothyroidism, hypertension, admitted for altered mental status with behavioral abnormality (aggression/violence) and diagnosed with dementia and 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 Dementia (Lewy Body dementia/Parkinson's dementia?) Psych also thought there may be element of vascular dementia as well MRI showed no acute pathology AMS workup showed negative RPR, neg HIV, TSH low but T3 and T4 normal scheduled haldol 1.5 mg at bed time and continue seroquel BID PFS/SW working on placement CKD Stage 3: stable Anemia, macrocytic Vit B12, folate wnl No s/s of bleeding Hypothyroidism TSH low, T3 and T4 wnl C/w levothyroxine 100 mcg PO daily for now reduced from 125 mcg H/O hypertension seems to have resolved likely due to advancing age, sarcopenia, decreasing oral intake. taken off antihypertensive medications as was having hypotensive episodes. Heel pain pain during walking tylenol bid. DVT ppx: Heparin sc VS,Fishbone, I+O VS, Fishbone, I+O Vital Signs Date Time Temp Pulse Resp B/P (MAP) Pulse Ox O2 Delivery O2 Flow Rate FiO2 12/02/20 07:01 98.3 79 18 167/85 (112) 98 Room Air I&O- Last 24 Hours up to 6 AM 12/02/20 06:00 Intake Total 1860 ml Balance 1860 ml ANAHI MATHIS MD Dec 02, 2020 11:04
[2020-12-02] MEDS: haloperidoL 0.5 MG TAB PO SCH (20:12)
[2020-12-03] MEDS: LEVOTHYROXINE 100MCG TABLET (0.1MG) PO SCH (06:43)
[2020-12-03 06:45] VITALS: BP 146/62
[2020-12-03 08:20] LABS: HEMATOCRIT 38.1 % (42.0-52.0); HEMOGLOBIN 12.8 g/dl (13.5-17.5); MEAN CORPUSCULAR HEMOGLOBIN 32.4 pg (27.0-33.0); MEAN CORPUSCULAR HGB CONC 33.6 g/dl (32.0-36.5); MEAN CORPUSCULAR VOLUME 96.5 fl (80.0-96.0); PLATELET COUNT, AUTOMATED 235 10^3/uL (150-450); RED BLOOD COUNT 3.95 10^6/uL (4.30-6.10)
[2020-12-03 08:48] LABS: CALCIUM LEVEL 9.2 MG/DL (8.8-10.2); CREATININE FOR GFR 1.29 MG/DL (0.70-1.30); GLOMERULAR FILTRATION RATE 56.6 (>35); POTASSIUM SERUM 4.8 MEQ/L (3.5-5.1)
[2020-12-03] MEDS: ACETAMINOPHEN 500 MG TAB PO SCH ×2 (09:14→20:41)
[2020-12-03] MEDS: QUEtiapine FUMARATE 25 MG TAB PO SCH ×2 (09:14→20:42)
[2020-12-03] MEDS: DOCUSATE SODIUM 100MG CAPSULE PO SCH ×2 (09:14→20:42)
[2020-12-03] MEDS: haloperidoL 0.5 MG TAB PO SCH (20:42)
[2020-12-04 06:00] VITALS: BP 142/61
[2020-12-04] MEDS: LEVOTHYROXINE 100MCG TABLET (0.1MG) PO SCH (06:46)
[2020-12-04] MEDS: ACETAMINOPHEN 500 MG TAB PO SCH ×2 (08:14→20:25)
[2020-12-04] MEDS: DOCUSATE SODIUM 100MG CAPSULE PO SCH ×2 (08:14→20:25)
[2020-12-04] MEDS: QUEtiapine FUMARATE 25 MG TAB PO SCH ×2 (08:14→20:25)
[2020-12-04] MEDS: haloperidoL 0.5 MG TAB PO SCH (20:25)
[2020-12-05] MEDS: LEVOTHYROXINE 100MCG TABLET (0.1MG) PO SCH (05:16)
[2020-12-05] MEDS: ACETAMINOPHEN TAB 650MG DOSE (2X325MG) PO PRN (05:21)
[2020-12-05 06:00] VITALS: BP 154/74
[2020-12-05] MEDS: DOCUSATE SODIUM 100MG CAPSULE PO SCH ×2 (08:28→20:35)
[2020-12-05] MEDS: ACETAMINOPHEN 500 MG TAB PO SCH ×2 (08:28→21:00)
[2020-12-05] MEDS: QUEtiapine FUMARATE 25 MG TAB PO SCH ×2 (08:28→20:35)
[2020-12-05] MEDS: haloperidoL 0.5 MG TAB PO SCH (20:35)
[2020-12-06] MEDS: LEVOTHYROXINE 100MCG TABLET (0.1MG) PO SCH (05:52)
[2020-12-06 06:00] VITALS: BP 143/69
[2020-12-06] MEDS: DOCUSATE SODIUM 100MG CAPSULE PO SCH ×2 (08:02→20:16)
[2020-12-06] MEDS: ACETAMINOPHEN 500 MG TAB PO SCH ×2 (08:02→20:16)
[2020-12-06] MEDS: QUEtiapine FUMARATE 25 MG TAB PO SCH ×2 (08:03→20:15)
[2020-12-06] MEDS: haloperidoL 0.5 MG TAB PO SCH (20:16)
[2020-12-07 05:43] VITALS: BP 110/53
[2020-12-07] MEDS: LEVOTHYROXINE 100MCG TABLET (0.1MG) PO SCH (06:00)
[2020-12-07] MEDS: DOCUSATE SODIUM 100MG CAPSULE PO SCH ×2 (08:26→22:20)
[2020-12-07] MEDS: ACETAMINOPHEN 500 MG TAB PO SCH ×2 (08:27→22:19)
[2020-12-07] MEDS: QUEtiapine FUMARATE 25 MG TAB PO SCH ×2 (08:27→22:19)
[2020-12-07] MEDS: haloperidoL 0.5 MG TAB PO SCH (22:19)
[2020-12-08 05:45] VITALS: BP 123/55
[2020-12-08] MEDS: LEVOTHYROXINE 100MCG TABLET (0.1MG) PO SCH (06:56)
[2020-12-08] MEDS: DOCUSATE SODIUM 100MG CAPSULE PO SCH ×2 (08:15→20:45)
[2020-12-08] MEDS: ACETAMINOPHEN 500 MG TAB PO SCH ×2 (08:15→20:45)
[2020-12-08] MEDS: QUEtiapine FUMARATE 25 MG TAB PO SCH ×2 (08:15→20:45)
[2020-12-08] MEDS: haloperidoL 0.5 MG TAB PO SCH (20:45)
[2020-12-09 05:59] VITALS: BP 152/73
[2020-12-09] MEDS: LEVOTHYROXINE 100MCG TABLET (0.1MG) PO SCH (06:32)
[2020-12-09] MEDS: DOCUSATE SODIUM 100MG CAPSULE PO SCH ×2 (08:11→19:52)
[2020-12-09] MEDS: QUEtiapine FUMARATE 25 MG TAB PO SCH ×2 (08:11→19:51)
[2020-12-09] MEDS: ACETAMINOPHEN 500 MG TAB PO SCH ×2 (08:11→19:52)
[2020-12-09 14:00] VITALS: BP 150/72
[2020-12-09] MEDS: haloperidoL 0.5 MG TAB PO SCH (19:52)
[2020-12-10 06:00] VITALS: BP 163/74
[2020-12-10] MEDS: LEVOTHYROXINE 100MCG TABLET (0.1MG) PO SCH (06:49)
[2020-12-10] MEDS: DOCUSATE SODIUM 100MG CAPSULE PO SCH ×2 (07:39→20:43)
[2020-12-10] MEDS: QUEtiapine FUMARATE 25 MG TAB PO SCH ×2 (07:39→20:44)
[2020-12-10] MEDS: ACETAMINOPHEN 500 MG TAB PO SCH ×2 (07:40→20:43)
[2020-12-10 08:55] LABS: HEMATOCRIT 37.1 % (42.0-52.0); HEMOGLOBIN 12.4 g/dl (13.5-17.5); MEAN CORPUSCULAR HEMOGLOBIN 32.8 pg (27.0-33.0); MEAN CORPUSCULAR HGB CONC 33.4 g/dl (32.0-36.5); MEAN CORPUSCULAR VOLUME 98.1 fl (80.0-96.0); PLATELET COUNT, AUTOMATED 216 10^3/uL (150-450); RED BLOOD COUNT 3.78 10^6/uL (4.30-6.10); WHITE BLOOD COUNT 4.1 10^3/uL (4.0-10.0)
[2020-12-10 09:16] LABS: CALCIUM LEVEL 9.2 MG/DL (8.8-10.2); CREATININE FOR GFR 1.39 MG/DL (0.70-1.30); POTASSIUM SERUM 4.9 MEQ/L (3.5-5.1)
[2020-12-10] MEDS: haloperidoL 0.5 MG TAB PO SCH (20:44)
[2020-12-11 06:00] VITALS: BP 144/73
[2020-12-11] MEDS: LEVOTHYROXINE 100MCG TABLET (0.1MG) PO SCH (06:50)
[2020-12-11] MEDS: QUEtiapine FUMARATE 25 MG TAB PO SCH ×2 (08:36→20:29)
[2020-12-11] MEDS: DOCUSATE SODIUM 100MG CAPSULE PO SCH ×2 (08:36→20:29)
[2020-12-11] MEDS: ACETAMINOPHEN 500 MG TAB PO SCH ×2 (08:36→20:28)
--- NOTE | 2020-12-11 13:19 | IPNPDOC ---
Date Seen The patient was seen on 12/11/20. Progress Note Subjective: Became frustrated before weekend, hit head on wall. No issues overnight. Denies chest pain, n/v/d, fevers, chills. Cooperative. Physical Examination VS: Please see below General: Alert, Cooperative, No Acute Distress ENT: Atraumatic, Pharynx Normal Neck: Supple, no JVD Chest: Clear to auscultation, Normal air movement, breathing comfortably on room air Heart: Rate Normal, Regular Rhythm, no m/r/g Abdomen: Normal bowel sounds, soft, NTND Extremity Exam: WWP, no LE edema Neuro Exam: moves all 4 extremities, no focal deficits Laboratory: Labs from 12/10/20 show no acute issues Assessment: 85-year-old M with PMHx of hypothyroidism, hypertension, admitted for altered mental status with behavioral abnormality (aggression/violence) and diagnosed with dementia and now awaiting [facility] placement. Plan: Dementia likley 2/2 to Lewy Body dementia/Parkinson's dementia? and/vs. likely vascular dementia Confused intermittently, baseline. Occasional episodes of agitation, frustrations. MRI showed no acute pathology AMS workup showed negative RPR, neg HIV, TSH low but T3 and T4 normal C/w haldol 1.5 mg at bed time and continue seroquel BID PFS/SW working on placement CKD Stage 3: Stable Anemia, macrocytic Vit B12, folate wnl No s/s of bleeding Hypothyroidism TSH low, T3 and T4 wnl C/w levothyroxine 100 mcg PO daily for now reduced from 125 mcg H/O hypertension No longer on antihypertensive medications due to low BP here Heel pain pain during walking Improving tylenol bid. DVT ppx: Heparin sc DISPOSITION: Pending placement. VS, I&O, 24H, Fishbone Vital Signs/I&O Vital Signs Date Time Temp Pulse Resp B/P (MAP) Pulse Ox O2 Delivery O2 Flow Rate FiO2 12/11/20 06:00 98.4 63 18 144/73 (96) 98 Room Air I&O- Last 24 Hours up to 6 AM 12/11/20 06:00 Intake Total 1080 ml Output Total 0 ml Balance 1080 ml Current Medications Current Medications Medications (Trade) Dose Ordered Sig/Cleopatra Route PRN Reason Start Time Stop Time Status Last Admin Dose Admin Acetaminophen (Tylenol Tab) 500 mg BID PO 11/03/20 21:00 12/11/20 08:36 Acetaminophen (Tylenol Tab) 650 mg Q4HP PRN PO PAIN OR FEVER 10/26/20 15:30 12/05/20 05:21 Amlodipine Besylate (Norvasc) 5 mg DAILY PO 10/20/20 09:00 10/31/20 18:14 DC 10/31/20 10:04 Diphenhydramine HCl (Benadryl) 50 mg ASDIRECTED PRN IM ANAPHYLAXIS 11/15/20 00:00 11/15/20 23:59 DC Docusate Sodium (Colace) 100 mg BID PO 10/07/20 09:00 12/11/20 08:36 Epinephrine HCl (Adrenalin) 0.3 mg ASDIRECTED PRN IM ANAPHYLAXIS 11/15/20 00:00 11/15/20 23:59 DC Haloperidol (Haldol) 0.5 mg TIDP PRN PO ANXIETY/AGITATION 09/21/20 19:30 10/11/20 12:35 DC 09/28/20 23:41 Haloperidol (Haldol) 1 mg QHS PO 09/21/20 21:00 09/27/20 09:32 DC 09/26/20 20:27 Haloperidol (Haldol) 1.5 mg QHS PO 09/27/20 21:00 10/24/20 08:40 DC 10/23/20 20:53 Haloperidol (Haldol) 1.5 mg QHS PO 11/13/20 21:00 12/10/20 20:44 Heparin Sodium (Porcine) (Heparin) 5,000 units Q12H SQ 09/20/20 21:00 10/24/20 08:39 DC 10/23/20 20:53 Home Med (Med Rec Complete!) ASDIRECTED XX 09/20/20 12:15 09/20/20 12:07 DC Levothyroxine Sodium (Synthroid) 100 mcg DAILY@06 PO 09/21/20 06:00 12/11/20 06:50 Quetiapine Fumarate (SEROquel) 12.5 mg BID PO 11/01/20 21:00 12/11/20 08:36 Quetiapine Fumarate (SEROquel) 25 mg BID PO 09/20/20 21:00 11/01/20 15:21 DC 11/01/20 10:08 Senna (Senokot) 2 tab DAILYPRN PRN PO CONSTIPATION 10/07/20 09:00 11/22/20 06:23 Sodium Chloride 1,000 ml @ 75 mls/hr [id number] IV 11/01/20 10:00 11/02/20 10:05 DC 11/02/20 05:33 Sodium Chloride 1,000 ml @ 100 mls/hr Q10H IV 09/20/20 12:15 09/20/20 20:53 DC 09/20/20 14:47 Sodium Chloride 1,000 ml @ 100 mls/hr Q10H IV 09/22/20 12:15 09/24/20 07:45 DC 09/24/20 06:43 Sodium Chloride 1,000 ml @ 100 mls/hr Q10H IV 11/08/20 08:20 11/08/20 18:19 DC 11/08/20 08:46 Trazodone HCl (Desyrel) 50 mg QHS PO 09/20/20 21:00 09/20/20 14:33 DC Allergies Coded Allergies: No Known Drug Allergies (Verified Allergy, Unknown, 09/20/20) Beatriz Segura MD Dec 11, 2020 13:19
[2020-12-11] MEDS: haloperidoL 0.5 MG TAB PO SCH (20:29)
[2020-12-12] MEDS: LEVOTHYROXINE 100MCG TABLET (0.1MG) PO SCH (05:46)
[2020-12-12 06:00] VITALS: BP 142/74
[2020-12-12] MEDS: DOCUSATE SODIUM 100MG CAPSULE PO SCH ×2 (08:32→22:47)
[2020-12-12] MEDS: ACETAMINOPHEN 500 MG TAB PO SCH ×2 (08:32→22:47)
[2020-12-12] MEDS: QUEtiapine FUMARATE 25 MG TAB PO SCH ×2 (08:32→22:47)
[2020-12-12] MEDS: haloperidoL 0.5 MG TAB PO SCH (22:47)
[2020-12-13] MEDS: LEVOTHYROXINE 100MCG TABLET (0.1MG) PO SCH (06:31)
[2020-12-13 07:18] VITALS: BP 139/62
[2020-12-13] MEDS: QUEtiapine FUMARATE 25 MG TAB PO SCH ×2 (07:56→21:21)
[2020-12-13] MEDS: DOCUSATE SODIUM 100MG CAPSULE PO SCH ×2 (07:56→21:20)
[2020-12-13] MEDS: ACETAMINOPHEN 500 MG TAB PO SCH ×2 (07:56→21:20)
[2020-12-13] MEDS: haloperidoL 0.5 MG TAB PO SCH (21:20)
[2020-12-14 06:00] VITALS: BP 130/61
[2020-12-14] MEDS: LEVOTHYROXINE 100MCG TABLET (0.1MG) PO SCH (06:27)
[2020-12-14] MEDS: DOCUSATE SODIUM 100MG CAPSULE PO SCH ×2 (09:55→20:39)
[2020-12-14] MEDS: ACETAMINOPHEN 500 MG TAB PO SCH ×2 (09:55→20:39)
[2020-12-14] MEDS: QUEtiapine FUMARATE 25 MG TAB PO SCH ×2 (09:55→20:39)
[2020-12-14] MEDS: haloperidoL 0.5 MG TAB PO SCH (20:39)
[2020-12-15] MEDS: LEVOTHYROXINE 100MCG TABLET (0.1MG) PO SCH (05:53)
[2020-12-15 06:00] VITALS: BP 135/87
[2020-12-15] MEDS: DOCUSATE SODIUM 100MG CAPSULE PO SCH ×2 (07:44→20:01)
[2020-12-15] MEDS: ACETAMINOPHEN 500 MG TAB PO SCH ×2 (07:44→20:01)
[2020-12-15] MEDS: QUEtiapine FUMARATE 25 MG TAB PO SCH ×2 (07:45→20:01)
[2020-12-15] MEDS: haloperidoL 0.5 MG TAB PO SCH (20:00)
[2020-12-16] MEDS: LEVOTHYROXINE 100MCG TABLET (0.1MG) PO SCH (05:46)
[2020-12-16 06:34] VITALS: BP 133/75
[2020-12-16] MEDS: DOCUSATE SODIUM 100MG CAPSULE PO SCH ×2 (07:42→21:06)
[2020-12-16] MEDS: ACETAMINOPHEN 500 MG TAB PO SCH ×2 (07:42→21:07)
[2020-12-16] MEDS: QUEtiapine FUMARATE 25 MG TAB PO SCH ×2 (07:42→21:07)
[2020-12-16] MEDS: haloperidoL 0.5 MG TAB PO SCH (21:06)
[2020-12-17 06:00] VITALS: BP 135/74
[2020-12-17] MEDS: LEVOTHYROXINE 100MCG TABLET (0.1MG) PO SCH (06:35)
[2020-12-17] MEDS: ACETAMINOPHEN 500 MG TAB PO SCH ×2 (08:20→21:01)
[2020-12-17] MEDS: QUEtiapine FUMARATE 25 MG TAB PO SCH ×2 (08:20→21:01)
[2020-12-17] MEDS: DOCUSATE SODIUM 100MG CAPSULE PO SCH ×2 (08:21→21:01)
[2020-12-17] MEDS: haloperidoL 0.5 MG TAB PO SCH (21:01)
[2020-12-18 06:00] VITALS: BP 165/70
[2020-12-18] MEDS: LEVOTHYROXINE 100MCG TABLET (0.1MG) PO SCH (06:06)
[2020-12-18] MEDS: QUEtiapine FUMARATE 25 MG TAB PO SCH ×2 (08:03→20:12)
[2020-12-18] MEDS: ACETAMINOPHEN 500 MG TAB PO SCH ×2 (08:03→20:11)
[2020-12-18] MEDS: DOCUSATE SODIUM 100MG CAPSULE PO SCH ×2 (08:03→20:11)
[2020-12-18] MEDS: haloperidoL 0.5 MG TAB PO SCH (20:11)
[2020-12-19 06:00] VITALS: BP 160/75
[2020-12-19] MEDS: LEVOTHYROXINE 100MCG TABLET (0.1MG) PO SCH (06:26)
[2020-12-19] MEDS: DOCUSATE SODIUM 100MG CAPSULE PO SCH ×2 (09:55→19:51)
[2020-12-19] MEDS: QUEtiapine FUMARATE 25 MG TAB PO SCH ×2 (09:55→19:51)
[2020-12-19] MEDS: ACETAMINOPHEN 500 MG TAB PO SCH ×2 (09:55→19:50)
[2020-12-19] MEDS: haloperidoL 0.5 MG TAB PO SCH (19:51)
[2020-12-20] MEDS: LEVOTHYROXINE 100MCG TABLET (0.1MG) PO SCH (05:43)
[2020-12-20 06:00] VITALS: BP 115/55
[2020-12-20] MEDS: ACETAMINOPHEN 500 MG TAB PO SCH ×2 (09:03→21:21)
[2020-12-20] MEDS: QUEtiapine FUMARATE 25 MG TAB PO SCH ×2 (09:03→21:24)
[2020-12-20] MEDS: DOCUSATE SODIUM 100MG CAPSULE PO SCH ×2 (09:03→21:21)
[2020-12-20] MEDS: haloperidoL 0.5 MG TAB PO SCH (21:21)
[2020-12-21] MEDS: LEVOTHYROXINE 100MCG TABLET (0.1MG) PO SCH (05:17)
[2020-12-21 05:20] VITALS: BP 149/71
[2020-12-21] MEDS: QUEtiapine FUMARATE 25 MG TAB PO SCH ×2 (09:00→21:00)
[2020-12-21] MEDS: DOCUSATE SODIUM 100MG CAPSULE PO SCH ×2 (11:46→21:00)
[2020-12-21] MEDS: ACETAMINOPHEN 500 MG TAB PO SCH ×2 (11:47→21:00)
[2020-12-21] MEDS: haloperidoL 0.5 MG TAB PO SCH (21:00)
[2020-12-22 06:00] VITALS: BP 141/73
[2020-12-22] MEDS: LEVOTHYROXINE 100MCG TABLET (0.1MG) PO SCH (06:48)
[2020-12-22] MEDS: DOCUSATE SODIUM 100MG CAPSULE PO SCH ×2 (10:00→20:27)
[2020-12-22] MEDS: ACETAMINOPHEN 500 MG TAB PO SCH ×2 (10:01→20:27)
[2020-12-22] MEDS: haloperidoL 0.5 MG TAB PO SCH (20:26)
[2020-12-22] MEDS: QUEtiapine FUMARATE 12.5 MG HALF-TAB PO SCH (20:27)
[2020-12-23 06:00] VITALS: BP 155/69
[2020-12-23] MEDS: LEVOTHYROXINE 100MCG TABLET (0.1MG) PO SCH (06:45)
[2020-12-23] MEDS: ACETAMINOPHEN 500 MG TAB PO SCH ×2 (09:46→20:11)
[2020-12-23] MEDS: QUEtiapine FUMARATE 12.5 MG HALF-TAB PO SCH ×2 (09:46→20:11)
[2020-12-23] MEDS: DOCUSATE SODIUM 100MG CAPSULE PO SCH ×2 (09:46→20:11)
[2020-12-23] MEDS: haloperidoL 0.5 MG TAB PO SCH (20:11)
[2020-12-24 06:00] VITALS: BP 149/72
[2020-12-24] MEDS: LEVOTHYROXINE 100MCG TABLET (0.1MG) PO SCH (06:26)
[2020-12-24] MEDS: DOCUSATE SODIUM 100MG CAPSULE PO SCH ×2 (09:41→20:34)
[2020-12-24] MEDS: QUEtiapine FUMARATE 12.5 MG HALF-TAB PO SCH ×2 (09:41→20:34)
[2020-12-24] MEDS: ACETAMINOPHEN 500 MG TAB PO SCH ×2 (09:41→20:34)
[2020-12-24] MEDS: haloperidoL 0.5 MG TAB PO SCH (20:34)
[2020-12-25] MEDS: LEVOTHYROXINE 100MCG TABLET (0.1MG) PO SCH (05:46)
[2020-12-25 06:01] VITALS: BP 144/65
[2020-12-25] MEDS: ACETAMINOPHEN 500 MG TAB PO SCH ×2 (08:02→20:34)
[2020-12-25] MEDS: DOCUSATE SODIUM 100MG CAPSULE PO SCH ×2 (08:02→20:34)
[2020-12-25] MEDS: QUEtiapine FUMARATE 12.5 MG HALF-TAB PO SCH ×2 (08:02→20:34)
--- NOTE | 2020-12-25 13:41 | IPNPDOC ---
Text Note Date of Service The patient was seen on 12/25/20. NOTE Subjective: Patient is an 85-year-old male with a PMHx of Hypothyroidism, HTN who was admitted for altered mental status with behavioral abnormality (aggression/violence) and diagnosed with dementia and now awaiting [facility] placement. Patient was seen and examined at the bedside. Patient was seen sitting up in chair watching television, was not in any acute distress. Objective: Vitals (See below) General: Lying in bed, no acute distress, comfortable, Awake / alert HEENT: NC, AT CVS: +S1S2 Lungs: Fair air entry b/l, -w/r/r Abdomen: Soft, ND, NT Extremities: - Edema, - Calf tenderness Assessment and plan: Dementia - likely 2/2 to Lewy Body dementia/Parkinson's dementia? and/vs. likely vascular dementia - Patient is sitting up in chair watching television - Has experience intermittent episodes of agitation and frustration - Hemodynamically stable / Afebrile - MRI negative for acute pathology - No signs of infection - c/w Haldol / Seroquel - PFS looking into long-term placement CKD3 - Cr stable Anemia, macrocytic - Vit B12, folate wnl - No evidence of bleeding Hypothyroidism - c/w adjusted dose of levothyroxine HTN - BP well controlled Heel pain pain during walking - c/w Tylenol PRN DVT prophylaxis - c/w TEDs/Sequentials Disposition: - Pending placement VS,Fishbone, I+O VS, Fishbone, I+O Vital Signs Date Time Temp Pulse Resp B/P (MAP) Pulse Ox O2 Delivery O2 Flow Rate FiO2 12/25/20 06:01 97.1 65 16 144/65 (91) 100 Room Air I&O- Last 24 Hours up to 6 AM 12/25/20 06:00 Intake Total 1610 ml Balance 1610 ml YOBANY HOWARD MD Dec 25, 2020 13:41
[2020-12-25] MEDS: haloperidoL 0.5 MG TAB PO SCH (20:34)
[2020-12-26] MEDS: SENNA 8.6 MG TAB (SENOKOT) PO PRN (04:27)
[2020-12-26] MEDS: ACETAMINOPHEN TAB 650MG DOSE (2X325MG) PO PRN (04:28)
[2020-12-26] MEDS: LEVOTHYROXINE 100MCG TABLET (0.1MG) PO SCH (05:16)
[2020-12-26 06:00] VITALS: BP 158/71
[2020-12-26] MEDS: DOCUSATE SODIUM 100MG CAPSULE PO SCH ×2 (09:20→20:18)
[2020-12-26] MEDS: ACETAMINOPHEN 500 MG TAB PO SCH ×2 (09:20→20:17)
[2020-12-26] MEDS: QUEtiapine FUMARATE 12.5 MG HALF-TAB PO SCH ×2 (09:21→20:17)
[2020-12-26] MEDS: haloperidoL 0.5 MG TAB PO SCH (20:18)
[2020-12-27 06:00] VITALS: BP 148/70
[2020-12-27] MEDS: LEVOTHYROXINE 100MCG TABLET (0.1MG) PO SCH (06:40)
[2020-12-27] MEDS: DOCUSATE SODIUM 100MG CAPSULE PO SCH ×2 (09:14→21:21)
[2020-12-27] MEDS: ACETAMINOPHEN 500 MG TAB PO SCH ×2 (09:14→21:21)
[2020-12-27] MEDS: QUEtiapine FUMARATE 12.5 MG HALF-TAB PO SCH ×2 (09:15→21:21)
[2020-12-27 11:05] LABS: BASO % 0.5 % (0.0-1.0); EOS # 0.1 10^3/uL (0.0-0.5); EOS % 2.8 % (0.0-3.0); HEMATOCRIT 36.1 % (42.0-52.0); HEMOGLOBIN 11.8 g/dl (13.5-17.5); LYMPH # 1.4 10^3/uL (1.5-5.0); MEAN CORPUSCULAR HEMOGLOBIN 32.1 pg (27.0-33.0); MEAN CORPUSCULAR HGB CONC 32.7 g/dl (32.0-36.5); MEAN CORPUSCULAR VOLUME 98.1 fl (80.0-96.0); MONO # 0.4 10^3/uL (0.0-0.8); MONO % 10.5 % (2.0-8.0); NEUTROPHILS % 50.9 % (36.0-66.0); PLATELET COUNT, AUTOMATED 203 10^3/uL (150-450); RED BLOOD COUNT 3.68 10^6/uL (4.30-6.10)
[2020-12-27 11:42] LABS: CALCIUM LEVEL 9.3 MG/DL (8.8-10.2); CREATININE FOR GFR 1.34 MG/DL (0.70-1.30); GLOMERULAR FILTRATION RATE 54.2 (>35); MAGNESIUM LEVEL 2.2 MG/DL (1.8-2.4); POTASSIUM SERUM 4.9 MEQ/L (3.5-5.1)
[2020-12-27] MEDS ORDERED: DOK1CAP7 PO (14:32)
[2020-12-27] MEDS ORDERED: HALO0.5H PO (14:32)
[2020-12-27] MEDS ORDERED: SENN18TA PO (14:32)
[2020-12-27] MEDS ORDERED: ACET-683 PO (14:32)
[2020-12-27] MEDS ORDERED: LEVO100T5 PO (14:32)
[2020-12-27] MEDS ORDERED: QUET25TA3 PO (14:32)
[2020-12-27] MEDS: haloperidoL 0.5 MG TAB PO SCH (21:21)
[2020-12-28 05:39] VITALS: BP 121/67
[2020-12-28] MEDS: LEVOTHYROXINE 100MCG TABLET (0.1MG) PO SCH (06:18)
[2020-12-28] MEDS: QUEtiapine FUMARATE 12.5 MG HALF-TAB PO SCH ×2 (08:52→21:06)
[2020-12-28] MEDS: DOCUSATE SODIUM 100MG CAPSULE PO SCH ×2 (08:52→21:06)
[2020-12-28] MEDS: ACETAMINOPHEN 500 MG TAB PO SCH ×2 (08:52→21:07)
[2020-12-28] MEDS: haloperidoL 0.5 MG TAB PO SCH (21:06)
[2020-12-29] MEDS: LEVOTHYROXINE 100MCG TABLET (0.1MG) PO SCH (05:28)
[2020-12-29 06:00] VITALS: BP 147/62
[2020-12-29] MEDS: ACETAMINOPHEN 500 MG TAB PO SCH ×2 (08:18→20:30)
[2020-12-29] MEDS: DOCUSATE SODIUM 100MG CAPSULE PO SCH ×2 (08:19→20:29)
[2020-12-29] MEDS: QUEtiapine FUMARATE 12.5 MG HALF-TAB PO SCH ×2 (08:19→20:29)
[2020-12-29] MEDS: haloperidoL 0.5 MG TAB PO SCH (20:30)
[2020-12-30] MEDS: LEVOTHYROXINE 100MCG TABLET (0.1MG) PO SCH (05:43)
[2020-12-30 06:16] VITALS: BP 130/62
[2020-12-30] MEDS: QUEtiapine FUMARATE 12.5 MG HALF-TAB PO SCH ×2 (09:00→21:16)
[2020-12-30] MEDS: ACETAMINOPHEN 500 MG TAB PO SCH ×2 (09:00→21:16)
[2020-12-30] MEDS: DOCUSATE SODIUM 100MG CAPSULE PO SCH ×2 (09:00→21:16)
[2020-12-30] MEDS: haloperidoL 0.5 MG TAB PO SCH (21:16)
[2020-12-31] MEDS: LEVOTHYROXINE 100MCG TABLET (0.1MG) PO SCH (05:17)
[2020-12-31 06:00] VITALS: BP 110/45
[2020-12-31] MEDS: ACETAMINOPHEN 500 MG TAB PO SCH ×2 (08:15→20:35)
[2020-12-31] MEDS: DOCUSATE SODIUM 100MG CAPSULE PO SCH ×2 (08:16→20:36)
[2020-12-31] MEDS: QUEtiapine FUMARATE 12.5 MG HALF-TAB PO SCH ×2 (08:16→20:35)
[2020-12-31] MEDS: haloperidoL 0.5 MG TAB PO SCH (20:36)
[2021-01-01] MEDS: LEVOTHYROXINE 100MCG TABLET (0.1MG) PO SCH (05:50)
[2021-01-01 06:00] VITALS: BP 127/70
[2021-01-01] MEDS: DOCUSATE SODIUM 100MG CAPSULE PO SCH ×2 (08:56→20:06)
[2021-01-01] MEDS: ACETAMINOPHEN 500 MG TAB PO SCH ×2 (08:57→20:06)
[2021-01-01] MEDS: QUEtiapine FUMARATE 12.5 MG HALF-TAB PO SCH ×2 (08:57→20:06)
[2021-01-01] MEDS: haloperidoL 0.5 MG TAB PO SCH (20:06)
[2021-01-02 06:00] VITALS: BP 117/48
[2021-01-02] MEDS: LEVOTHYROXINE 100MCG TABLET (0.1MG) PO SCH (06:53)
[2021-01-02] MEDS: QUEtiapine FUMARATE 12.5 MG HALF-TAB PO SCH ×2 (07:55→21:02)
[2021-01-02] MEDS: ACETAMINOPHEN 500 MG TAB PO SCH ×2 (07:55→21:03)
[2021-01-02] MEDS: DOCUSATE SODIUM 100MG CAPSULE PO SCH ×2 (07:55→21:02)
[2021-01-02] MEDS: haloperidoL 0.5 MG TAB PO SCH (21:02)
[2021-01-03] MEDS: ACETAMINOPHEN TAB 650MG DOSE (2X325MG) PO PRN (02:38)
[2021-01-03 06:00] VITALS: BP 121/59
[2021-01-03] MEDS: LEVOTHYROXINE 100MCG TABLET (0.1MG) PO SCH (06:05)
[2021-01-03] MEDS: ACETAMINOPHEN 500 MG TAB PO SCH ×2 (09:05→20:15)
[2021-01-03] MEDS: DOCUSATE SODIUM 100MG CAPSULE PO SCH ×2 (09:05→20:15)
[2021-01-03] MEDS: QUEtiapine FUMARATE 12.5 MG HALF-TAB PO SCH ×2 (09:07→20:15)
[2021-01-03] MEDS: haloperidoL 0.5 MG TAB PO SCH (20:15)
[2021-01-04 05:47] VITALS: BP 141/59
[2021-01-04] MEDS: LEVOTHYROXINE 100MCG TABLET (0.1MG) PO SCH (05:51)
[2021-01-04] MEDS: QUEtiapine FUMARATE 12.5 MG HALF-TAB PO SCH ×2 (09:14→20:58)
[2021-01-04] MEDS: ACETAMINOPHEN 500 MG TAB PO SCH ×2 (09:14→20:58)
[2021-01-04] MEDS: DOCUSATE SODIUM 100MG CAPSULE PO SCH ×2 (09:14→20:58)
[2021-01-04] MEDS: haloperidoL 0.5 MG TAB PO SCH (20:58)
[2021-01-05 05:23] VITALS: BP 138/60
[2021-01-05] MEDS: LEVOTHYROXINE 100MCG TABLET (0.1MG) PO SCH (05:28)
[2021-01-05] MEDS: DOCUSATE SODIUM 100MG CAPSULE PO SCH ×2 (08:12→20:29)
[2021-01-05] MEDS: QUEtiapine FUMARATE 12.5 MG HALF-TAB PO SCH ×2 (08:12→20:30)
[2021-01-05] MEDS: ACETAMINOPHEN 500 MG TAB PO SCH ×2 (08:12→20:29)
[2021-01-05] MEDS: haloperidoL 0.5 MG TAB PO SCH (20:30)
[2021-01-06] MEDS: LEVOTHYROXINE 100MCG TABLET (0.1MG) PO SCH (05:54)
[2021-01-06 06:00] VITALS: BP 120/61
--- NOTE | 2021-01-06 07:22 | IPNPDOC ---
Text Note Date of Service The patient was seen on 01/06/21. 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 Patient voices no new medical complaints. No acute events reported. 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 #Dementia - likely 2/2 to Lewy Body dementia/Parkinson's dementia? and/vs. likely vascular dementia - Has experience intermittent episodes of agitation and frustration - MRI negative for acute pathology - No signs of infection - c/w Haldol / Seroquel - PFS looking into long-term placement #CKD3 - stable #Anemia, macrocytic - Vit B12, folate wnl #Hypothyroidism - c/w adjusted dose of levothyroxine #HTN - BP well controlled #Heel pain pain during walking - c/w Tylenol PRN #DVT prophylaxis - mechanical Disposition: - Pending placement VS,Fishbone, I+O VS, Fishbone, I+O Vital Signs Date Time Temp Pulse Resp B/P (MAP) Pulse Ox O2 Delivery O2 Flow Rate FiO2 01/06/21 06:00 97.3 54 18 120/61 (80) 97 Room Air I&O- Last 24 Hours up to 6 AM 01/06/21 06:00 Intake Total 1200 ml Output Total 0 ml Balance 1200 ml PROSPER RHODES MD January 06, 2021 07:22
[2021-01-06 07:58] LABS: HEMATOCRIT 35.6 % (42.0-52.0); HEMOGLOBIN 11.6 g/dl (13.5-17.5); MEAN CORPUSCULAR HEMOGLOBIN 31.8 pg (27.0-33.0); MEAN CORPUSCULAR HGB CONC 32.6 g/dl (32.0-36.5); MEAN CORPUSCULAR VOLUME 97.5 fl (80.0-96.0); PLATELET COUNT, AUTOMATED 227 10^3/uL (150-450); RED BLOOD COUNT 3.65 10^6/uL (4.30-6.10); WHITE BLOOD COUNT 4.8 10^3/uL (4.0-10.0)
[2021-01-06 08:24] LABS: ALBUMIN 3.6 GM/DL (3.2-5.2); BILIRUBIN,TOTAL 0.3 MG/DL (0.2-1.0); CALCIUM LEVEL 9.1 MG/DL (8.8-10.2); CREATININE FOR GFR 1.34 MG/DL (0.70-1.30); GLOMERULAR FILTRATION RATE 54.1 (>35); POTASSIUM SERUM 4.8 MEQ/L (3.5-5.1); TOTAL PROTEIN 7.3 GM/DL (6.4-8.2)
[2021-01-06] MEDS: QUEtiapine FUMARATE 12.5 MG HALF-TAB PO SCH ×2 (08:29→19:54)
[2021-01-06] MEDS: ACETAMINOPHEN 500 MG TAB PO SCH ×2 (08:29→19:54)
[2021-01-06] MEDS: DOCUSATE SODIUM 100MG CAPSULE PO SCH ×2 (08:29→19:54)
[2021-01-06] MEDS: haloperidoL 0.5 MG TAB PO SCH (19:54)
[2021-01-07] MEDS: LEVOTHYROXINE 100MCG TABLET (0.1MG) PO SCH (05:54)
[2021-01-07 06:00] VITALS: BP 138/57
[2021-01-07] MEDS: QUEtiapine FUMARATE 12.5 MG HALF-TAB PO SCH ×2 (08:07→21:19)
[2021-01-07] MEDS: ACETAMINOPHEN 500 MG TAB PO SCH ×2 (08:08→21:19)
[2021-01-07] MEDS: DOCUSATE SODIUM 100MG CAPSULE PO SCH ×2 (08:08→21:18)
[2021-01-07] MEDS: haloperidoL 0.5 MG TAB PO SCH (21:18)
[2021-01-08 05:12] VITALS: BP 134/60
[2021-01-08] MEDS: LEVOTHYROXINE 100MCG TABLET (0.1MG) PO SCH (05:12)
[2021-01-08] MEDS: QUEtiapine FUMARATE 12.5 MG HALF-TAB PO SCH ×2 (09:32→20:45)
[2021-01-08] MEDS: DOCUSATE SODIUM 100MG CAPSULE PO SCH ×2 (09:32→20:45)
[2021-01-08] MEDS: ACETAMINOPHEN 500 MG TAB PO SCH ×2 (09:33→20:45)
[2021-01-08] MEDS: haloperidoL 0.5 MG TAB PO SCH (20:45)
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
[2021-01-09 06:00] VITALS: BP 133/64
[2021-01-09] MEDS: LEVOTHYROXINE 100MCG TABLET (0.1MG) PO SCH (06:30)
== END 2021-01-09 07:30 | DRG 42 ==
LOC: M ED 09:16 → M ED INP 12:01 → M MS5PR 15:45
PROVIDERS: ADMIT Internal Medicine; ATTEND Internal Medicine
DX: G31.83 Neurocognitive disorder with Lewy bodies (principal); N17.9 Acute kidney failure, unspecified; E87.5 Hyperkalemia; F01.51 Vascular dementia, unspecified severity, with behavioral disturbance; F02.81 Dementia in other diseases classified elsewhere, unspecified severity, with behavioral disturbance; N18.30 Chronic kidney disease, stage 3 unspecified; D53.9 Nutritional anemia, unspecified; E03.9 Hypothyroidism, unspecified; I12.9 Hypertensive chronic kidney disease with stage 1 through stage 4 chronic kidney disease, or unspecified chronic kidney disease; Z79.899 Other long term (current) drug therapy; R07.9 Chest pain, unspecified; R42 Dizziness and giddiness